=== PATIENT | female | born 1945 | race Caucasian/White ===

== ENCOUNTER 2017-03-18 07:53 | Outpatient (CLI) | payer MEDICARE, OTHER | END 2017-03-18 07:54 | disposition home or self-care (01) | DX: I10 Essential (primary) hypertension (principal) ==

== ENCOUNTER 2017-07-08 11:13 | Day surgery (SDC) | payer MEDICARE, OTHER ==
[2017-07-08] MEDS ORDERED: LACTATED RINGERS 1,000 ML IV ONE ×2 (11:20→13:05)
[2017-07-08] MEDS ORDERED: MIDAZOLAM 2 MG/2 ML VIAL IVP ONE (12:01)
[2017-07-08] MEDS ORDERED: fentaNYL 100 MCG/2 ML VIAL IVP ONE (12:01)
[2017-07-08 14:10] VITALS: BP 104/53
== END 2017-07-08 11:14 | disposition home or self-care (01) ==
LOC: SDS 11:13
PROVIDERS: ATTEND Surgery
PROC: 0DBL8ZX Excision of Transverse Colon, Via Natural or Artificial Opening Endoscopic, Diagnostic (ICD-10-PCS; 2017-07-08)
PROC: 0DBN8ZX Excision of Sigmoid Colon, Via Natural or Artificial Opening Endoscopic, Diagnostic (ICD-10-PCS; 2017-07-08)
PROC: 0DBC8ZX Excision of Ileocecal Valve, Via Natural or Artificial Opening Endoscopic, Diagnostic (ICD-10-PCS; 2017-07-08)
PROC: 0DBK8ZX Excision of Ascending Colon, Via Natural or Artificial Opening Endoscopic, Diagnostic (ICD-10-PCS; principal; 2017-07-08 12:15)
DX: D12.2 Benign neoplasm of ascending colon (principal); D12.3 Benign neoplasm of transverse colon; D12.0 Benign neoplasm of cecum; D12.5 Benign neoplasm of sigmoid colon; K64.4 Residual hemorrhoidal skin tags; K57.30 Diverticulosis of large intestine without perforation or abscess without bleeding; K64.8 Other hemorrhoids; K21.9 Gastro-esophageal reflux disease without esophagitis; E03.9 Hypothyroidism, unspecified; E78.5 Hyperlipidemia, unspecified; Z79.82 Long term (current) use of aspirin; Z88.2 Allergy status to sulfonamides
CPT/HCPCS: 45380; 45385; J7120

== ENCOUNTER 2018-05-26 07:50 | Outpatient (CLI) | payer MEDICARE, OTHER ==
[2018-05-26 12:57] LABS: BASOPHILS # (AUTO) 0.1 10^3/uL (0.0-0.1); BASOPHILS % (AUTO) 1.1 %; EOSINOPHILS # (AUTO) 0.3 10^3/uL (0.0-0.7); EOSINOPHILS % (AUTO) 4.9 %; HGB - HEMOGLOBIN 13.7 g/dL (12.0-16.0); LYMPHOCYTES # (AUTO) 1.9 10^3/uL (1.5-3.5); MEAN CORPUSCULAR HGB CONC 33.2 g/dL (32.0-36.0); MEAN CORPUSCULAR VOLUME 93.3 fL (81.0-99.0); MEAN PLATELET VOLUME 9.5 fL (7.9-10.8); MONOCYTES # (AUTO) 0.6 10^3/uL (0.0-1.0); MONOCYTES % (AUTO) 9.8 %; NEUTROPHILS # (AUTO) 2.9 10^3/uL (1.5-6.6); NEUTROPHILS % (AUTO) 51.2 %; PLT - PLATELET COUNT 276 10^3/uL (130-450); RED BLOOD COUNT 4.41 10^6/uL (4.20-5.40); RED CELL DISTRIBUTION WIDTH 14.5 % (12.0-15.0); WHITE BLOOD COUNT 5.7 x10^3/uL (4.8-10.8)
[2018-05-26 13:18] LABS: ALBUMIN 3.7 g/dL (3.2-5.5); ALBUMIN/GLOBULIN RATIO 1.2 (1.0-2.2); ALKALINE PHOSPHATASE 47 IU/L (42-121); ALT ALANINE AMINOTRANSFERASE 18 IU/L (10-60); AST ASPARTATE AMINOTRANSFERASE 20 IU/L (10-42); BILIRUBIN,TOTAL 0.7 mg/dL (0.2-1.0); BUN - BLOOD UREA NITROGEN 23 mg/dL (6-20); CALCIUM 8.7 mg/dL (8.5-10.3); CARBON DIOXIDE - CO2 28 mmol/L (21-32); CHLORIDE 105 mmol/L (101-111); CHOL/HDL RATIO 2.8 (<4.4); CHOLESTEROL 184 mg/dL; CREATININE 1.1 mg/dL (0.4-1.0); GFR - MDRD 49 (>89); GLUCOSE 78 mg/dL (70-100); HDL CHOLESTEROL 66 mg/dL; LDL CHOLESTEROL,CALCULATED 98 mg/dL; LDL/HDL RATIO 1.5 (<4.4); SODIUM 139 mmol/L (135-145); TOTAL PROTEIN 6.9 g/dL (6.7-8.2); VLDL CHOLESTEROL 20 mg/dL
== END 2018-05-26 07:51 ==
LOC: LAB.WCP 07:50
PROVIDERS: ATTEND Family Medicine
DX: I10 Essential (primary) hypertension (principal); E78.5 Hyperlipidemia, unspecified; E03.9 Hypothyroidism, unspecified
CPT/HCPCS: 36415; 80053; 80061; 83721; 84443; 85025

== ENCOUNTER 2018-06-29 08:00 | Outpatient (CLI) | payer MEDICARE, OTHER ==
[2018-06-29 19:52] LABS: H. PYLORIS ANTIGEN STL NEGATIVE (Negative)
== END 2018-06-29 08:01 | disposition home or self-care (01) ==
LOC: LAB.WCP 08:00
PROVIDERS: ATTEND Physician Assistant Medical
DX: K52.9 Noninfective gastroenteritis and colitis, unspecified (principal)
CPT/HCPCS: 83630; 87338; 87493

== ENCOUNTER 2018-07-01 09:22 | Outpatient (CLI) | payer MEDICARE, OTHER | END 2018-07-01 09:23 | disposition home or self-care (01) | LOC: LAB.WCP 09:22 | PROVIDERS: ATTEND Physician Assistant Medical | DX: K52.9 Noninfective gastroenteritis and colitis, unspecified (principal) | CPT/HCPCS: 81599; 87045; 87046; 87177; 87209; 87329 ==

== ENCOUNTER 2018-08-16 12:11 | Outpatient (CLI) | payer MEDICARE, OTHER ==
--- NOTE | 2018-08-17 11:37 | Mammography Report ---
Reason: SCREENING MAMMO Procedure Date: 08/16/2018 Accession Number: [id number] / [id number] Procedure: MGN - Screening Mammo Dig Bilat CPT Code: FULL RESULT: EXAM: Screening Mammo Dig Bilat DATE: 08/16/2018 12:29 PM CLINICAL HISTORY: 72-year-old female presents for screening mammography. TECHNIQUE: Bilateral CC and MLO views were obtained. COMPARISON: 07/16/2016, 05/31/2015, 05/11/2014, 01/16/2013. FINDINGS: The breasts demonstrate scattered fibroglandular densities bilaterally. Typically benign vascular calcifications are seen in the left and right breast. No suspicious masses, clustered microcalcifications, or regions of architectural distortion are identified. IMPRESSION: Benign findings RECOMMENDATION: Routine annual screening unless otherwise clinically indicated. BIRADS CATEGORY 2: Benign findings STANDARD QUALIFYING STATEMENTS: 1. This examination was not reviewed with the aid of Computer-Aided Detection (CAD). 2. A negative or benign imaging report should not delay biopsy if clinically suspicious findings are present. Consider surgical consultation if warrented. More than 5% of cancers are not identified by imaging. 3. Dense breasts may obscure an underlying neoplasm. 4. This examination was reviewed without the aid of 3D breast imaging (tomosynthesis).
== END 2018-08-16 12:12 | disposition home or self-care (01) ==
LOC: DI.N 12:11
PROVIDERS: ATTEND Physician Assistant Medical
DX: Z12.31 Encounter for screening mammogram for malignant neoplasm of breast (principal)
CPT/HCPCS: 77067

== ENCOUNTER 2019-05-12 07:18 | Outpatient (CLI) | payer MEDICARE, OTHER ==
[2019-05-12 13:19] LABS: BASOPHILS % (AUTO) 0.7 %; EOSINOPHILS # (AUTO) 0.4 10^3/uL (0.0-0.7); EOSINOPHILS % (AUTO) 7.5 %; HGB - HEMOGLOBIN 13.6 g/dL (12.0-16.0); LYMPHOCYTES # (AUTO) 1.8 10^3/uL (1.5-3.5); LYMPHOCYTES % (AUTO) 31.5 %; MEAN CORPUSCULAR HEMOGLOBIN 29.6 pg (27.0-31.0); MEAN CORPUSCULAR HGB CONC 32.5 g/dL (32.0-36.0); MEAN CORPUSCULAR VOLUME 91.1 fL (81.0-99.0); MEAN PLATELET VOLUME 10.9 fL (7.9-10.8); MONOCYTES # (AUTO) 0.6 10^3/uL (0.0-1.0); MONOCYTES % (AUTO) 10.8 %; NEUTROPHILS # (AUTO) 2.9 10^3/uL (1.5-6.6); NEUTROPHILS % (AUTO) 49.3 %; PLT - PLATELET COUNT 285 10^3/uL (130-450); RED CELL DISTRIBUTION WIDTH 13.9 % (12.0-15.0); WHITE BLOOD COUNT 5.9 x10^3/uL (4.8-10.8)
[2019-05-12 14:18] LABS: ALBUMIN 4.3 g/dL (3.2-5.5); ALBUMIN/GLOBULIN RATIO 1.5 (1.0-2.2); ALKALINE PHOSPHATASE 53 IU/L (42-121); ALT ALANINE AMINOTRANSFERASE 21 IU/L (10-60); AST ASPARTATE AMINOTRANSFERASE 23 IU/L (10-42); BUN - BLOOD UREA NITROGEN 17 mg/dL (6-20); CARBON DIOXIDE - CO2 25 mmol/L (21-32); CHLORIDE 106 mmol/L (101-111); CHOL/HDL RATIO 2.5 (<4.4); CHOLESTEROL 167 mg/dL; GFR - MDRD 54 (>89); GLUCOSE 83 mg/dL (70-100); HDL CHOLESTEROL 67 mg/dL; LDL CHOLESTEROL,CALCULATED 78 mg/dL; LDL/HDL RATIO 1.2 (<4.4); SODIUM 138 mmol/L (135-145); TOTAL PROTEIN 7.1 g/dL (6.7-8.2); VLDL CHOLESTEROL 22 mg/dL
== END 2019-05-12 07:19 | disposition home or self-care (01) ==
LOC: LAB.WCP 07:18
PROVIDERS: ATTEND Physician Assistant Medical
DX: E78.5 Hyperlipidemia, unspecified (principal); K21.9 Gastro-esophageal reflux disease without esophagitis
CPT/HCPCS: 36415; 80053; 80061; 83721; 85025

== ENCOUNTER 2019-06-20 11:53 | Outpatient (CLI) | payer MEDICARE, OTHER ==
--- NOTE | 2019-06-20 17:49 | XRAY Report ---
Reason: WHEEZING Procedure Date: 06/20/2019 Accession Number: [id number] / [id number] Procedure: XR - Chest 2 View X-Ray CPT Code: 73303 FULL RESULT: EXAM: CHEST RADIOGRAPHY EXAM DATE: 06/20/2019 12:07 PM. CLINICAL HISTORY: WHEEZING. COMPARISON: 10/10/2015 9:04 AM. TECHNIQUE: 2 views. FINDINGS: Lungs/Pleura: Scarring in left lung base similar to previous study. No acute infiltrate, consolidation, effusion, or pneumothorax. Mediastinum: Heart and mediastinal contours are unremarkable. upper lobe vessels not distended. Other: None. IMPRESSION: Chronic findings. No acute disease. RADIA
== END 2019-06-20 11:54 | disposition home or self-care (01) ==
LOC: DI 11:53
PROVIDERS: ATTEND Allergy & Immunology
DX: R06.2 Wheezing (principal)
CPT/HCPCS: 71046

== ENCOUNTER 2019-06-26 | Outpatient (CLI) | payer MEDICARE, OTHER | END 2019-06-26 23:59 | disposition home or self-care (01) | DX: E03.9 Hypothyroidism, unspecified (principal) ==

== ENCOUNTER 2019-06-26 09:00 | Outpatient (CLI) | payer MEDICARE, OTHER ==
--- NOTE | 2019-06-27 09:10 | XRAY Report ---
Reason: RIGHT LEG PAIN Procedure Date: 06/26/2019 Accession Number: [id number] / [id number] Procedure: WCP - Tib/Fib RT CPT Code: FULL RESULT: EXAM: RIGHT TIBIA/FIBULA RADIOGRAPHY EXAM DATE: 06/26/2019 02:13 PM. CLINICAL HISTORY: Right leg pain. Hit [place] below right knee 3 weeks ago with continued large bump and swelling. COMPARISON: XR KNEE 3 VIEW 01/01/2012 10:39 AM. TECHNIQUE: 2 views. FINDINGS: Bones: Normal. No fracture or bone lesion. Joints: Degenerative disease of the knee redemonstrated. No joint subluxation. Soft Tissues: Proximal pretibial swelling demonstrated. IMPRESSION: 1. No acute osseous abnormality. 2. Knee osteoarthritis redemonstrated. 3. Proximal, pretibial swelling demonstrated. RADIA
== END 2019-06-26 23:59 | disposition home or self-care (01) ==
LOC: DI.WCP 09:00 → EDSTATUS 13:01 → DI.WCP 23:59
PROVIDERS: ATTEND Physician Assistant Medical
DX: M17.11 Unilateral primary osteoarthritis, right knee (principal); R22.41 Localized swelling, mass and lump, right lower limb

== ENCOUNTER 2019-10-12 10:04 | Outpatient (CLI) | payer MEDICARE, OTHER ==
--- NOTE | 2019-10-13 10:09 | Mammography Report ---
Reason: SCREENING MAMMO Procedure Date: 10/12/2019 Accession Number: [id number] / [id number] Procedure: STEPHEN - Screening Mammo Dig Bilat CPT Code: Final Report FULL RESULT: EXAM: Screening Mammo Dig Bilat DATE: 10/12/2019 10:28 AM CLINICAL HISTORY: Screening encounter. TECHNIQUE: (B) - Bilateral CC and MLO views were obtained. COMPARISON: 08/16/2018 through 04/28/2010. PARENCHYMAL PATTERN: (A) - The breast(s) demonstrate(s) scattered fibroglandular densities. FINDINGS: There are typically benign vascular calcifications. In the right retroareolar breast 2 cm from the nipple seen on MLO projection is an increasing 0.7 cm asymmetry without definite CC correlate. This requires additional spot views ideally with 3-D mammography and possibly ultrasound for clarification. There are no suspicious masses, calcifications, or areas of distortion in the left breast. IMPRESSION: Incomplete examination. BI-RADS category 0. RECOMMENDATION: (AD[facility]) - Additional views using both Mammography and Ultrasound recommended. Right breast. BI-RADS CATEGORY: (0) - Incomplete Examination - need additional evaluation. STANDARD QUALIFYING STATEMENTS: 1. This examination was not reviewed with the aid of Computer-Aided Detection (CAD). 2. A negative or benign imaging report should not preclude biopsy if clinically suspicious findings are present. 3. Dense breasts may obscure an underlying neoplasm. 4. This examination was reviewed without the aid of 3D breast imaging (tomosynthesis).
== END 2019-10-12 10:05 | disposition home or self-care (01) ==
LOC: DI 10:04
DX: Z12.31 Encounter for screening mammogram for malignant neoplasm of breast (principal); R92.8 Other abnormal and inconclusive findings on diagnostic imaging of breast
CPT/HCPCS: 77067

== ENCOUNTER 2019-10-18 13:58 | Outpatient (CLI) | payer MEDICARE, OTHER ==
--- NOTE | 2019-10-18 16:42 | Mammography Report ---
Reason: ABN MAMMO - RT SPEC VIEW Procedure Date: 10/18/2019 Accession Number: [id number] / [id number] Procedure: STEPHEN - Diag Special Views Dig RT CPT Code: Final Report FULL RESULT: EXAM: Diag Special Views Dig RT with cristal, Breast Unilateral Limited DATE: 10/18/2019 2:57 PM CLINICAL HISTORY: The patient is an asymptomatic 74-year-old female recalled from screening mammogram (10/12/2019) for developing right breast asymmetry. RIGHT MAMMOGRAM: TECHNIQUE: (Diagnostic views right breast with cristal COMPARISON: 08/16/2018, 07/16/2016, 05/31/2015, 05/11/2014 and 01/16/2013 PARENCHYMAL PATTERN: (A) - The breasts demonstrate scattered fibroglandular densities bilaterally. FINDINGS: The described focal asymmetry near fully dissipates on targeted diagnostic imaging. There are no suspicious masses, calcifications, or areas of distortion. There is no mammographic evidence of malignancy. RIGHT BREAST ULTRASOUND: TECHNIQUE: A high frequency transducer was utilized to evaluate the area of mammographic concern in the anterior aspect of the breast. FINDINGS: [place] of normal fibrofatty tissue present. Few normal subareolar ducts noted. No cyst, solid mass, hyperemia or distortion. There is no sonographic evidence of malignancy. IMPRESSION: Benign findings. BI-RADS category 2. RECOMMENDATION: (ANNUAL) - Recommend routine annual screening mammography. BI-RADS CATEGORY: (2) - Benign Findings. STANDARD QUALIFYING STATEMENTS: 1. This examination was not reviewed with the aid of Computer-Aided Detection (CAD). 2. A negative or benign imaging report should not preclude biopsy if clinically suspicious findings are present. 3. Dense breasts may obscure an underlying neoplasm. 4. This examination was reviewed with the aid of 3D breast imaging (tomosynthesis).
== END 2019-10-18 13:59 | disposition home or self-care (01) ==
LOC: DI 13:58
PROVIDERS: ATTEND Physician Assistant Medical
DX: R92.8 Other abnormal and inconclusive findings on diagnostic imaging of breast (principal)
CPT/HCPCS: 76642

== ENCOUNTER 2020-01-16 12:44 | Outpatient (CLI) | payer MEDICARE, OTHER ==
--- NOTE | 2020-01-23 11:22 | DEXA Report ---
Reason: SCREEN FOR OSTEOPOROSIS Procedure Date: 01/16/2020 Accession Number: [id number] / [id number] Procedure: DEX - Dexa Spine and/or Hip CPT Code: Final Report FULL RESULT: EXAM: Dexa Spine and/or Hip DATE: 01/16/2020 1:52 PM CLINICAL HISTORY: SCREEN FOR OSTEOPOROSIS TECHNIQUE: Dual energy x-ray absorptiometry (DXA) was performed on a PDV System. Regions measured are the AP Spine, femoral neck, and if needed forearm. COMPARISON: 09/10/2016. In accordance with the International Society for Clinical Densitometry (ISCD) guidelines, data from previous exams may be reanalyzed using current recommendations and techniques. This is done to allow a more accurate basis for comparison with the current study. FINDINGS: The data for the lumbar spine is as follows: BMD (g/cm/cm) T-SCORE Z-SCORE REGION L1 0.881 -2.1 -0.9 L2 0.932 -2.2 -1.1 L3 0.960 -2.0 -0.9 L4 1.112 -0.7 0.4 TOTAL 0.989 -1.6 -0.5 NOTE: All evaluable vertebrae are used for classification The data for the hip is as follows: BMD (g/cm/cm) T-SCORE Z-SCORE REGION Neck 0.670 -2.6 -1.1 TOTAL 0.711 -2.4 -1.0 NOTE: The femoral neck or total proximal femur, whichever is lowest, is used for classification. DXA RESULTS SUMMARY: Spine SCAN DATE [age]GE BMD CHANGE VS CHANGE VS PREVIOUS PREVIOUS % 01[age]16/2020 [age] 0.970 -0.027 -2.7 09/10/2016 [age] 0.997 * Denotes significant change at the 95% confidence level. Denotes dissimilar scan types or analysis methods. DXA RESULTS SUMMARY: Hip SCAN DATE AGE BMD CHANGE VS CHANGE VS PREVIOUS PREVIOUS % 01[age]16/2020 74.3 0.711 -0.063* -8.1* 09/10/2016 [age] 0.744 * Denotes significant change at the 95% confidence level. Denotes dissimilar scan types or analysis methods. IMPRESSION: THE WHO CLASSIFICATION BASED ON THE INTERNATIONAL REFERENCE STANDARD IS OSTEOPOROSIS. THE FRACTURE RISK IS HIGH. Interval decrease in bone density in the hip is statistically significant. RECOMMENDATION: Patients with diagnosis of osteoporosis or osteopenia should have regular bone mineral density assessment. For those eligible for Medicare, routine testing is allowed once every 2 years. Testing frequency can be increased for patients who have rapidly progressing disease or for those who are receiving medical therapy to restore bone mass. COMMENT: World Health Organization (WHO) definitions for osteoporosis and osteopenia: NORMAL BMD: T-score at -1.0 or higher, fracture risk is low OSTEOPENIA BMD: T-score between -1.0 and -2.5, fracture risk is increased. OSTEOPOROSIS BMD: T-score at -2.5 or lower, fracture risk is high. National Osteoporosis Foundation recommends: 1. Obtain adequate dietary calcium (at least 1200 mg per day) and vitamin D (400-800 international units per day). 2. Participate, as appropriate, in regular weightbearing and muscle-strengthening exercise. 3. Avoid tobacco use and reduce alcohol and caffeine intake. 4. For more detailed information see the website at www.NOF.org.
== END 2020-01-16 12:45 | disposition home or self-care (01) ==
LOC: DI 12:44
PROVIDERS: ATTEND Physician Assistant Medical
DX: Z13.820 Encounter for screening for osteoporosis (principal); M81.0 Age-related osteoporosis without current pathological fracture; Z78.0 Asymptomatic menopausal state
CPT/HCPCS: 77080

== ENCOUNTER 2020-06-07 11:52 | Outpatient (CLI) | payer MEDICARE, OTHER | END 2020-06-07 11:53 | disposition home or self-care (01) | LOC: COV 11:52 | PROVIDERS: ATTEND Family Medicine | DX: R06.02 Shortness of breath (principal); R53.83 Other fatigue; R68.83 Chills (without fever); R09.81 Nasal congestion; Z20.828 Contact with and (suspected) exposure to other viral communicable diseases ==

== ENCOUNTER 2020-06-17 17:42 | Outpatient (CLI) | payer MEDICARE, OTHER | END 2020-06-17 17:43 | disposition home or self-care (01) | LOC: COV 17:42 | PROVIDERS: ATTEND Family Medicine | DX: R06.02 Shortness of breath (principal); R53.83 Other fatigue; R68.83 Chills (without fever); R09.81 Nasal congestion; Z20.828 Contact with and (suspected) exposure to other viral communicable diseases ==

== ENCOUNTER 2020-07-04 08:00 | Outpatient (CLI) | payer MEDICARE, OTHER | END 2020-07-04 23:59 | disposition home or self-care (01) | LOC: LAB.WCP 08:00 | PROVIDERS: ATTEND Physician Assistant Medical | DX: R31.9 Hematuria, unspecified (principal) | CPT/HCPCS: 81002 ==

== ENCOUNTER 2020-07-05 14:43 | Outpatient (CLI) | payer MEDICARE, OTHER ==
[2020-07-05 18:40] LABS: BILIRUBIN,URINE NEGATIVE (NEGATIVE); GLUCOSE, URINE (UA) NEGATIVE (NEGATIVE); KETONES,URINE (UA) NEGATIVE (NEGATIVE); LEUKOCYTE ESTERASE, URINE MODERATE (NEGATIVE); NITRITE,URINE NEGATIVE (NEGATIVE); OCCULT BLOOD,URINE TRACE-LYSE (NEGATIVE); PH,URINE 5.5 PH (5.0-7.5); PROTEIN,URINE NEGATIVE (NEGATIVE); UROBILINOGEN,URINE 0.2 (NORMAL) E.U./dL (NORMAL)
[2020-07-05 18:46] LABS: CLARITY,URINE HAZY (CLEAR)
[2020-07-05 19:11] LABS: BACTERIA,URINE Rare /HPF (None Seen); SQUAMOUS EPITHELIAL CELL,UR MANY Squamous (<= Few)
== END 2020-07-05 14:44 | disposition home or self-care (01) ==
LOC: LAB.R 14:43
PROVIDERS: ATTEND Family Medicine
DX: R31.9 Hematuria, unspecified (principal)
CPT/HCPCS: 81001; 87086

== ENCOUNTER 2020-10-22 13:07 | Outpatient (CLI) | payer MEDICARE, OTHER ==
--- NOTE | 2020-10-23 05:44 | Mammography Report ---
BILATERAL DIGITAL SCREENING MAMMOGRAM 3D/2D: 10/22/2020 CLINICAL: Routine screening. Comparison is made to exams dated: 10/18/2019 ultrasound, 10/18/2019 mammogram, 10/12/2019 mammogram , 08/16/2018 mammogram, 07/16/2016 mammogram, and 05/31/2015 mammogram - [facility]. There are scattered fibroglandular elements in both breasts. No significant masses, calcifications, or other findings are seen in either breast. There has been no significant interval change. IMPRESSION: NEGATIVE There is no mammographic evidence of malignancy. A 1 year screening mammogram is recommended. This exam was interpreted at Station ID: [id number]. NOTE: For mammograms, a report in lay terms will be sent to the patient. Approximately 15% of breast malignancies will not be visualized mammographically. In the management of a palpable breast mass, a negative mammogram must not discourage biopsy of a clinically suspicious lesion. Electronically Signed By: Jasson ivory/mariana:10/22/2020 17:41:34 ACR BI-RADS Category 1: Negative 3341F PARENCHYMAL PATTERN: (A) - The breast(s) demonstrate(s) scattered fibroglandular densities. BI-RADS CATEGORY: (1) - 1 RECOMMENDATION: (ANNUAL) - Recommend routine annual screening mammography. [id number] 1 year screening LATERALITY: (B)
== END 2020-10-22 13:08 | disposition home or self-care (01) ==
LOC: DI.N 13:07
DX: Z12.31 Encounter for screening mammogram for malignant neoplasm of breast (principal)

== ENCOUNTER 2020-10-25 07:27 | Outpatient (CLI) | payer MEDICARE, OTHER ==
[2020-10-25 12:43] LABS: BASOPHILS # (AUTO) 0.1 10^3/uL (0.0-0.1); EOSINOPHILS # (AUTO) 0.2 10^3/uL (0.0-0.7); EOSINOPHILS % (AUTO) 3.7 %; HGB - HEMOGLOBIN 13.6 g/dL (12.0-16.0); LYMPHOCYTES % (AUTO) 33.8 %; MEAN CORPUSCULAR HEMOGLOBIN 30.3 pg (27.0-31.0); MEAN CORPUSCULAR HGB CONC 32.8 g/dL (32.0-36.0); MEAN CORPUSCULAR VOLUME 92.4 fL (81.0-99.0); MEAN PLATELET VOLUME 11.3 fL (7.9-10.8); MONOCYTES # (AUTO) 0.6 10^3/uL (0.0-1.0); MONOCYTES % (AUTO) 10.7 %; NEUTROPHILS % (AUTO) 50.6 %; PLT - PLATELET COUNT 291 10^3/uL (130-450); RED BLOOD COUNT 4.49 10^6/uL (4.20-5.40); RED CELL DISTRIBUTION WIDTH 13.5 % (12.0-15.0)
[2020-10-25 13:04] LABS: ALBUMIN/GLOBULIN RATIO 1.3 (1.0-2.2); ALKALINE PHOSPHATASE 53 IU/L (42-121); ALT ALANINE AMINOTRANSFERASE 20 IU/L (10-60); AST ASPARTATE AMINOTRANSFERASE 21 IU/L (10-42); BILIRUBIN,TOTAL 0.9 mg/dL (0.2-1.0); BUN - BLOOD UREA NITROGEN 20 mg/dL (6-20); CALCIUM 9.2 mg/dL (8.5-10.3); CARBON DIOXIDE - CO2 27 mmol/L (21-32); CHLORIDE 102 mmol/L (101-111); CHOL/HDL RATIO 2.4 (<4.4); CHOLESTEROL 178 mg/dL; GLUCOSE 88 mg/dL (70-100); HDL CHOLESTEROL 73 mg/dL; LDL CHOLESTEROL,CALCULATED 91 mg/dL; LDL/HDL RATIO 1.2 (<4.4); SODIUM 141 mmol/L (135-145); VLDL CHOLESTEROL 14 mg/dL
== END 2020-10-25 07:28 | disposition home or self-care (01) ==
LOC: LAB.WCP 07:27
PROVIDERS: ATTEND Physician Assistant Medical
DX: E78.5 Hyperlipidemia, unspecified (principal); E03.9 Hypothyroidism, unspecified; I10 Essential (primary) hypertension
CPT/HCPCS: 36415; 80053; 80061; 83721; 84443; 85025

== ENCOUNTER 2020-11-25 08:00 | Outpatient (CLI) | payer MEDICARE, OTHER ==
[2020-11-25 13:25] LABS: CHOL/HDL RATIO 2.5 (<4.4); CHOLESTEROL 176 mg/dL; HDL CHOLESTEROL 71 mg/dL; LDL CHOLESTEROL,CALCULATED 88 mg/dL; LDL/HDL RATIO 1.2 (<4.4); VLDL CHOLESTEROL 17 mg/dL
== END 2020-11-25 23:59 | disposition home or self-care (01) ==
LOC: LAB.WCP 08:00
PROVIDERS: ATTEND Registered Nurse
DX: E78.49 Other hyperlipidemia (principal)
CPT/HCPCS: 36415; 80061; 83721

== ENCOUNTER 2021-02-06 09:24 | Day surgery (SDC) | payer MEDICARE, OTHER ==
[2021-02-06] MEDS ORDERED: LACTATED RINGERS 1,000 ML IV ONE ×2 (09:27→11:23)
--- NOTE | 2021-02-06 10:13 | ANESTHESIA ---
Pre-Anesthesia VS, & Labs - Diagnosis history of colon polyps - Procedure colonoscopy Vital Signs: Temp Pulse Resp BP Pulse Ox 36.6 C 82 16 147/89 H 98 02/06/21 09:30 02/06/21 09:30 02/06/21 09:30 02/06/21 09:30 02/06/21 09:30 Height: 5 ft 4 in Weight (kg): 79 kg Body Mass Index: 29.9 BMI Classification: Overweight - NPO >8 hours - Is Patient ?: No Home Medications and Allergies Home Medications: Ambulatory Orders Apixaban [Eliquis] 5 mg PO DAILY 02/05/21 Diltiazem HCl [Cardizem Cd] 360 mg PO DAILY 02/05/21 Simvastatin [Zocor] 20 mg PO DAILY 02/05/21 Hydrochlorothiazide 12.5 mg PO DAILY 10/10/15 Levothyroxine [Synthroid] 100 mcg PO DAILY 10/10/15 Apixaban [Eliquis] 5 mg PO DAILY 02/05/21 Diltiazem HCl [Cardizem Cd] 360 mg PO DAILY 02/05/21 Simvastatin [Zocor] 20 mg PO DAILY 02/05/21 Allergies/Adverse Reactions: Allergies Allergy/AdvReac Type Severity Reaction Status Date / Time Sulfa (Sulfonamide Allergy Unknown Verified 07/08/17 11:34 Antibiotics) Anes History & Medical History - Anesthetic History Anesthesia Complications: reports: No previous complications - Medical History Cardiovascular: reports: Hypertension, Atrial fibrillation Pulmonary: reports: Sleep apnea, CPAP use Gastrointestinal: reports: GERD Urinary: reports: Chronic bladder infection Neuro: reports: None Musculoskeletal: reports: Osteoarthritis Endocrine/Autoimmune: reports: None Blood Disorders: reports: None Skin: reports: Other Smoking Status: Never smoker Psychosocial: reports: No issues indicated - Surgical History General: reports: Cholecystectomy, Appendectomy, Colonoscopy Eyes Ears Nose Throat (EENT): reports: Cataracts, Other Exam General: Alert, Oriented x3, Cooperative, No acute distress Dental: WNL Mouth Openin Fingerbreadth Neck Mobility: Normal Mallampati classification: II Mental/Cognitive Status: Alert/Oriented X3, Normal for patient Plan Anesthesia Type: MAC Consent for Procedure(s) Verified and Reviewed: Yes Code Status: Attempt Resuscitation ASA classification: 2-Mild systemic disease Is this case an emergency?: No
[2021-02-06] MEDS ORDERED: PROPOFOL 500 MG/50 ML 500 MG/50 ML VIAL ONE (10:48)
[2021-02-06] MEDS ORDERED: fentaNYL 100 MCG/2 ML VIAL ONE (10:51)
[2021-02-06] MEDS ORDERED: GLYCOPYRROLATE 1 MG/5 ML VIAL ONE (11:09)
[2021-02-06] MEDS ORDERED: PHENYLEPHRINE 10 MG/ML VIAL ONE (11:20)
[2021-02-06 11:57] VITALS: BP 109/55
--- NOTE | 2021-02-06 17:15 | ANESTHESIA POST OP EVALUATION ---
Anesthesia Post Eval - Post Anesthesia Eval Vitals: Last Vital Signs Temp 36.6 C 02/06/21 11:45 Pulse 113 H 02/06/21 11:45 Resp 17 02/06/21 11:45 BP 109/55 L 02/06/21 11:45 Pulse Ox 97 02/06/21 11:45 CV Function Including HR & BP: positive: Stable Pain Control: positive: Satisfactory Nausea & Vomiting: positive: Negative Mental Status: positive: Baseline Respiratory Status: Airway Patent Hydration Status: Satisfactory Anesthesia Complications: positive: None
== END 2021-02-06 09:25 | disposition home or self-care (01) ==
LOC: SDS 09:24
PROVIDERS: ATTEND Surgery
PROC: 0DBE8ZX Excision of Large Intestine, Via Natural or Artificial Opening Endoscopic, Diagnostic (ICD-10-PCS; 2021-02-06)
PROC: 0DBL8ZZ Excision of Transverse Colon, Via Natural or Artificial Opening Endoscopic (ICD-10-PCS; 2021-02-06)
PROC: 0DBH8ZZ Excision of Cecum, Via Natural or Artificial Opening Endoscopic (ICD-10-PCS; principal; 2021-02-06 10:30)
DX: R19.7 Diarrhea, unspecified (principal); D12.0 Benign neoplasm of cecum; D12.3 Benign neoplasm of transverse colon; K57.30 Diverticulosis of large intestine without perforation or abscess without bleeding; I48.91 Unspecified atrial fibrillation; E66.3 Overweight; Z68.29 Body mass index [BMI] 29.0-29.9, adult; I10 Essential (primary) hypertension; G47.30 Sleep apnea, unspecified; K21.9 Gastro-esophageal reflux disease without esophagitis; E03.9 Hypothyroidism, unspecified; F41.9 Anxiety disorder, unspecified
CPT/HCPCS: 45380; 83630; 87015; 87177; 87209; 87272; 87329; 87493; J7120

== ENCOUNTER 2021-03-07 13:36 | Emergency (ER) | payer MEDICARE, OTHER ==
--- NOTE | 2021-03-07 13:48 | ED Physician Documentation ---
PD HPI LOWER EXT INJURY - Stated complaint Stated Complaint: LT LEG PX - Chief complaint Chief Complaint: Ext Problem - History obtained from History obtained from: Patient - History of Present Illness PD HPI LOW EXT INJURY LOCATION: Left, Lower leg, Ankle, Foot Type of injury: No: Fall, Twist, Blunt / blow Timing - onset: How many weeks ago (1) Timing - duration: Weeks (1) Timing - details: Gradual onset (has had a week of pain in ankle and foot. Some redness to top of foot. Noted some swelling in both legs, but more to left. No pain in calf itself.), Still present Worsened by: Moving (walking), Palpating (top of back tender pulp drier) Associated symptoms: Swelling, Discolored (redness dorsum of foot). No: Weakness, Numbness Similar symptoms before: Has not had sx before Recently seen: Clinic (went to Walk In and referred to ER for U/S for concern of DVT.) Review of Systems Constitutional: denies: Fever, Chills Nose: denies: Rhinorrhea / runny nose, Congestion Throat: denies: Sore throat Respiratory: denies: Cough Skin: denies: Abrasion (s), Laceration (s) Musculoskeletal: reports: Extremity pain, Extremity swelling Neurologic: denies: Focal weakness, Numbness PD PAST MEDICAL HISTORY - Past Medical History Cardiovascular: Hypertension, Atrial fibrillation Respiratory: Sleep apnea, CPAP use Neuro: None Endocrine/Autoimmune: None GI: GERD : Chronic bladder infection HEENT: Chronic vision loss, Chronic sinusitis Psych: Claustrophobia Musculoskeletal: Osteoarthritis Derm: Other - Past Surgical History Past Surgical History: No General: Cholecystectomy, Appendectomy, Colonoscopy HEENT: Cataracts, Other - Present Medications Home Medications: Ambulatory Orders Medication Instructions Recorded Confirmed Hydrochlorothiazide 12.5 mg PO DAILY 10/10/15 03/07/21 Levothyroxine [Synthroid] 100 mcg PO DAILY 10/10/15 03/07/21 Apixaban [Eliquis] 5 mg PO BID 02/05/21 03/07/21 Diltiazem HCl [Cardizem Cd] 360 mg PO DAILY 02/05/21 03/07/21 Simvastatin [Zocor] 20 mg PO DAILY 02/05/21 03/07/21 dexAMETHasone [Decadron] 4 mg PO DAILY #5 tablet 03/07/21 - Allergies Allergies/Adverse Reactions: Allergies Allergy/AdvReac Type Severity Reaction Status Date / Time Sulfa (Sulfonamide Allergy Unknown Verified 03/07/21 13:40 Antibiotics) - Social History Does the pt smoke?: No Smoking Status: Never smoker Does the pt drink ETOH?: Yes Does the pt have substance abuse?: No - Immunizations Immunizations are current?: Yes PD ED PE NORMAL - Vitals Vital signs reviewed: Yes - General General: Alert and oriented X 3, No acute distress, Well developed/nourished - Respiratory Respiratory: No respiratory distress, Clear bilaterally - Derm Derm: Normal color, Warm and dry, No rash - Extremities Extremities: Other (mild swelling/edema in both legs, more to the left. No calf tenderness. There is redness with tenderness but no skin sores on dorsum of the foot. Mild tender base great toe as well but not red there. Some dry skin on bottom of foot but no noted infection source area. ) Results - Vitals Vitals: Oxygen O2 Source Room air - Rads (name of study) duplex left lower ext Radiology: Prelim report reviewed (no DVT), See rad report PD MEDICAL DECISION MAKING - ED course Complexity details: reviewed results, considered differential (could consider DVT re: foot swelling/ankle. Dorsum foot redness/tender seems c/w gout.), d/w patient Departure - Departure Disposition: 01 Home, Self Care Clinical Impression: Left foot pain, Swelling of lower leg Condition: Stable Record reviewed to determine appropriate education?: Yes Follow-Up: Matilde Rubin PA-C [Primary Care Provider] - Prescriptions: dexAMETHasone [Decadron] 4 mg PO DAILY #5 tablet Comments: No signs of blood clots on ultrasound. Continue usual medications. The top of the foot redness and some swelling could be some arthritic changes although it does have an appearance that could be consistent with gout. We can treat this with some steroid anti-inflammatories so as not to interfere with your anticoagulant. Add Tylenol if needed for pains. It does not look infectious at this point. Return if worsening redness swelling or pain. Discharge Date/Time: 03/07/21 17:27
--- OUTSIDE RECORDS SUMMARY | 2021-03-07 14:33 | EXTERNAL MEDICAL SUMMARY RPT | Continuity of Care Document ---
:1945 Demographics Phone Unavailable Preferred Language Unknown Marital Status Unknown Scientologist Affiliation Unknown Race Unknown Ethnic Group Unknown Author Organization [facility] Address [address] [place] [address] Phone Social History date description facility [phone]
--- NOTE | 2021-03-07 16:06 | Ultrasound Report ---
PROCEDURE: Duplex Ext Veins Left INDICATIONS: leg swelling and tender TECHNIQUE: Real-time imaging, as well as color and pulse Doppler interrogation, were performed of the lower extr emity deep veins from the inguinal ligament to the popliteal fossa. COMPARISON: None. FINDINGS: The deep veins are normally compressible, and free of intraluminal thrombus. Color and pu lse Doppler demonstrate normal phasic intraluminal flow. There is normal augmentation response to di stal compression maneuver. IMPRESSION: No evidence of deep vein thrombosis involving the left lower extremity. Reviewed by: Kenna Casiano MD, PhD on 03/07/2021 4:04 PM PDT Approved by: Kenna Casiano MD, PhD on 03/07/2021 4:04 PM PDT Station ID: [id number]
[2021-03-07 17:06] VITALS: BP 134/75
== END 2021-03-07 17:27 | disposition home or self-care (01) ==
LOC: ED 13:36
DX: M25.572 Pain in left ankle and joints of left foot (principal); R60.0 Localized edema; L53.9 Erythematous condition, unspecified; I10 Essential (primary) hypertension; I48.91 Unspecified atrial fibrillation; Z79.01 Long term (current) use of anticoagulants
CPT/HCPCS: 99283; 99284

== ENCOUNTER 2021-05-21 08:00 | Outpatient (CLI) | payer MEDICARE, OTHER ==
[2021-05-21 12:40] LABS: ALBUMIN 4.1 g/dL (3.2-5.5); ALBUMIN/GLOBULIN RATIO 1.4 (1.0-2.2); ALKALINE PHOSPHATASE 54 IU/L (42-121); ALT ALANINE AMINOTRANSFERASE 15 IU/L (10-60); AST ASPARTATE AMINOTRANSFERASE 18 IU/L (10-42); BUN - BLOOD UREA NITROGEN 21 mg/dL (6-20); CALCIUM 8.7 mg/dL (8.5-10.3); CARBON DIOXIDE - CO2 27 mmol/L (21-32); CHLORIDE 101 mmol/L (101-111); CHOL/HDL RATIO 2.2 (<4.4); CHOLESTEROL 167 mg/dL; CREATININE 1.1 mg/dL (0.4-1.0); GFR - MDRD 48 (>89); GLUCOSE 88 mg/dL (70-100); HDL CHOLESTEROL 75 mg/dL; LDL CHOLESTEROL,CALCULATED 80 mg/dL; LDL/HDL RATIO 1.1 (<4.4); POTASSIUM 3.6 mmol/L (3.5-5.0); SODIUM 137 mmol/L (135-145); TOTAL PROTEIN 7.1 g/dL (6.7-8.2); TRIGLYCERIDES 59 mg/dL; VLDL CHOLESTEROL 12 mg/dL
== END 2021-05-21 23:59 | disposition home or self-care (01) ==
LOC: LAB.WCP 08:00
PROVIDERS: ATTEND Physician Assistant Medical
DX: E78.5 Hyperlipidemia, unspecified (principal)
CPT/HCPCS: 36415; 80053; 80061; 83721

== ENCOUNTER 2021-08-26 07:24 | Outpatient (CLI) | payer MEDICARE, OTHER ==
[2021-08-26 11:57] LABS: CALCIUM 8.9 mg/dL (8.5-10.3); CREATININE 1.2 mg/dL (0.4-1.0)
== END 2021-08-26 23:59 | disposition home or self-care (01) ==
LOC: LAB.WCP 07:24
PROVIDERS: ATTEND Physician Assistant Medical
DX: N18.9 Chronic kidney disease, unspecified (principal)
CPT/HCPCS: 36415; 80048

== ENCOUNTER 2021-12-18 11:10 | Outpatient (CLI) | payer MEDICARE, OTHER ==
--- NOTE | 2021-12-19 12:30 | Mammography Report ---
BILATERAL DIGITAL SCREENING MAMMOGRAM 3D/2D: 12/18/2021 CLINICAL: Routine screening. Comparison is made to exams dated: 10/22/2020 mammogram, 10/18/2019 ultrasound, 10/18/2019 mammogram, 10/12/2019 mammogram, 08/16/2018 mammogram, and 07/16/2016 mammogram - [facility]. There are scattered fibroglandular elements in both breasts. No significant masses, calcifications, or other findings are seen in either breast. There has been no significant interval change. IMPRESSION: NEGATIVE There is no mammographic evidence of malignancy. A 1 year screening mammogram is recommended. This exam was interpreted at Station ID: [id number]. NOTE: For mammograms, a report in lay terms will be sent to the patient. Approximately 15% of breast malignancies will not be visualized mammographically. In the management of a palpable breast mass, a negative mammogram must not discourage biopsy of a clinically suspicious lesion. Electronically Signed By: John Fregoso acr/penrad:12/18/2021 12:06:09 ACR BI-RADS Category 1: Negative 3341F PARENCHYMAL PATTERN: (A) - The breast(s) demonstrate(s) scattered fibroglandular densities. BI-RADS CATEGORY: (1) - 1 RECOMMENDATION: (ANNUAL) - Recommend routine annual screening mammography. [id number] 1 year screening LATERALITY: (B)
== END 2021-12-18 11:11 | disposition home or self-care (01) ==
LOC: DI.N 11:10
DX: Z12.31 Encounter for screening mammogram for malignant neoplasm of breast (principal)

== ENCOUNTER 2022-01-01 07:04 | Outpatient (CLI) | payer MEDICARE, OTHER ==
[2022-01-01 12:50] LABS: ALBUMIN 4.2 g/dL (3.2-5.5); ALBUMIN/GLOBULIN RATIO 1.4 (1.0-2.2); ALKALINE PHOSPHATASE 54 IU/L (42-121); ALT ALANINE AMINOTRANSFERASE 11 IU/L (10-60); AST ASPARTATE AMINOTRANSFERASE 18 IU/L (10-42); BUN - BLOOD UREA NITROGEN 18 mg/dL (6-20); CALCIUM 9.2 mg/dL (8.5-10.3); CARBON DIOXIDE - CO2 28 mmol/L (21-32); CHLORIDE 102 mmol/L (101-111); CHOL/HDL RATIO 2.4 (<4.4); CHOLESTEROL 185 mg/dL; CREATININE 1.2 mg/dL (0.4-1.0); GFR - MDRD 43 (>89); GLUCOSE 92 mg/dL (70-100); HDL CHOLESTEROL 78 mg/dL; LDL CHOLESTEROL,CALCULATED 94 mg/dL; LDL/HDL RATIO 1.2 (<4.4); POTASSIUM 4.3 mmol/L (3.5-5.0); SODIUM 141 mmol/L (135-145); TOTAL PROTEIN 7.2 g/dL (6.7-8.2); TRIGLYCERIDES 65 mg/dL; VLDL CHOLESTEROL 13 mg/dL
== END 2022-01-01 07:05 | disposition home or self-care (01) ==
LOC: LAB.N 07:04
PROVIDERS: ATTEND Physician Assistant Medical
DX: E78.5 Hyperlipidemia, unspecified (principal)
CPT/HCPCS: 36415; 80053; 80061; 83721

== ENCOUNTER 2022-02-02 11:25 | Outpatient (CLI) | payer MEDICARE, OTHER ==
[2022-02-02 19:04] LABS: THYROID STIMULATING HORMONE 2.26 uIU/mL (0.34-5.60)
== END 2022-02-02 11:26 | disposition home or self-care (01) ==
LOC: LAB.N 11:25
PROVIDERS: ATTEND Physician Assistant Medical
DX: E03.9 Hypothyroidism, unspecified (principal)
CPT/HCPCS: 36415; 84443

== ENCOUNTER 2022-02-02 11:28 | Outpatient (CLI) | payer MEDICARE, OTHER ==
--- NOTE | 2022-02-02 12:26 | XRAY Report ---
PROCEDURE: Shoulder 2 View BILAT INDICATIONS: SHOULDER IMPINGEMENT SYNDROME, BILATERAL TECHNIQUE: 2 views of the shoulder were acquired. COMPARISON: None. FINDINGS: Bones: No fractures or dislocations. No suspicious bony lesions. Visualized ribs appear intact. M oderate to severe bilateral acromioclavicular degenerative narrowing. No erosions. Soft tissues: No suspicious soft tissue calcifications. IMPRESSION: Moderate to severe bilateral acromioclavicular arthritic narrowing. Reviewed by: Nicole Linder MD on 02/02/2022 12:24 PM PDT Approved by: Nicole Linder MD on 02/02/2022 12:24 PM PDT Station ID: [id number]
--- NOTE | 2022-02-02 17:04 | XRAY Report ---
PROCEDURE: Knee 3 View BILAT INDICATIONS: ARTHRITIS TECHNIQUE: 3 views of the bilateral knee(s) were acquired. COMPARISON: None. FINDINGS: Bones: No fractures or dislocations. No suspicious bony lesions. There is moderate to severe bilat eral medial as well as patellofemoral compartment narrowing. Periarticular osteophytes are present wi thout erosions. Mild lateral compartment narrowing is noted on the right, minimal on the left. All Soft tissues: No joint effusion. No suspicious soft tissue calcifications. IMPRESSION: Tricompartmental arthritic change as above. Reviewed by: Nicole Linder MD on 02/02/2022 5:02 PM PDT Approved by: Nicole Linder MD on 02/02/2022 5:02 PM PDT Station ID: [id number]
== END 2022-02-02 11:29 | disposition home or self-care (01) ==
LOC: DI.N 11:28
PROVIDERS: ATTEND Physician Assistant Medical
DX: M75.42 Impingement syndrome of left shoulder (principal); M75.41 Impingement syndrome of right shoulder; M19.012 Primary osteoarthritis, left shoulder; M19.011 Primary osteoarthritis, right shoulder; M17.0 Bilateral primary osteoarthritis of knee; E03.9 Hypothyroidism, unspecified
CPT/HCPCS: 36415; 84443

== ENCOUNTER 2022-09-25 20:43 | Outpatient (CLI) | payer MEDICARE, OTHER ==
--- NOTE | 2022-09-27 08:50 | Ultrasound Report ---
PROCEDURE: Duplex Ext Veins Bilateral INDICATIONS: Swelling TECHNIQUE: Real-time imaging, as well as color and pulse Doppler interrogation, were performed of the deep veins of both legs from the inguinal ligament to the popliteal fossa. COMPARISON: 03/07/2021 FINDINGS: The deep veins are normally compressible, and free of intraluminal thrombus. Color and pu lse Doppler demonstrate normal phasic intravascular flow. There is normal augmentation response to d istal compression maneuver. IMPRESSION: No evidence of deep venous thrombosis, bilateral lower extremities Reviewed by: Dawson Landis MD on 09/27/2022 7:49 AM [facility] Approved by: Dawson Landis MD on 09/27/2022 7:49 AM [facility] Station ID: [id number]
== END 2022-09-25 20:44 | disposition home or self-care (01) ==
LOC: DI 20:43
PROVIDERS: ATTEND Physician Assistant
DX: R60.0 Localized edema (principal)
CPT/HCPCS: 93970

== ENCOUNTER 2022-10-19 07:44 | Outpatient (CLI) | payer MEDICARE, OTHER ==
[2022-10-19 12:31] LABS: BASOPHILS % (AUTO) 0.2 %; EOSINOPHILS # (AUTO) 0.1 10^3/uL (0.0-0.7); EOSINOPHILS % (AUTO) 0.6 %; HCT - HEMATOCRIT 43.7 % (37.0-47.0); HGB - HEMOGLOBIN 14.1 g/dL (12.0-16.0); LYMPHOCYTES # (AUTO) 1.8 10^3/uL (1.5-3.5); LYMPHOCYTES % (AUTO) 12.9 %; MEAN CORPUSCULAR HEMOGLOBIN 29.4 pg (27.0-31.0); MEAN CORPUSCULAR HGB CONC 32.3 g/dL (32.0-36.0); MONOCYTES # (AUTO) 1.2 10^3/uL (0.0-1.0); MONOCYTES % (AUTO) 8.3 %; PLT - PLATELET COUNT 380 10^3/uL (130-450); RED CELL DISTRIBUTION WIDTH 13.5 % (12.0-15.0); WHITE BLOOD COUNT 14.3 x10^3/uL (4.8-10.8)
[2022-10-19 13:02] LABS: ALBUMIN 3.6 g/dL (3.2-5.5); ALBUMIN/GLOBULIN RATIO 1.2 (1.0-2.2); ALKALINE PHOSPHATASE 56 IU/L (42-121); ALT ALANINE AMINOTRANSFERASE 30 IU/L (10-60); AST ASPARTATE AMINOTRANSFERASE 20 IU/L (10-42); BILIRUBIN,TOTAL 0.9 mg/dL (0.2-1.0); BUN - BLOOD UREA NITROGEN 21 mg/dL (6-20); CARBON DIOXIDE - CO2 27 mmol/L (21-32); CHLORIDE 103 mmol/L (101-111); CHOL/HDL RATIO 2.7 (<4.4); CHOLESTEROL 157 mg/dL; CREATININE 0.9 mg/dL (0.4-1.0); GFR - MDRD 60 (>89); GLUCOSE 87 mg/dL (70-100); HDL CHOLESTEROL 58 mg/dL; LDL CHOLESTEROL,CALCULATED 81 mg/dL; LDL/HDL RATIO 1.4 (<4.4); POTASSIUM 4.2 mmol/L (3.5-5.0); SODIUM 138 mmol/L (135-145); TOTAL PROTEIN 6.6 g/dL (6.7-8.2); TRIGLYCERIDES 92 mg/dL; VLDL CHOLESTEROL 18 mg/dL
[2022-10-19 13:06] LABS: THYROID STIMULATING HORMONE 0.91 uIU/mL (0.34-5.60)
== END 2022-10-19 07:45 | disposition home or self-care (01) ==
LOC: LAB.N 07:44
PROVIDERS: ATTEND Nurse Practitioner Family
DX: I47.1 Supraventricular tachycardia (principal); E78.5 Hyperlipidemia, unspecified
CPT/HCPCS: 36415; 80053; 80061; 83721; 84443; 85025

== ENCOUNTER 2022-11-03 11:29 | Emergency (ER) | payer MEDICARE, OTHER ==
--- NOTE | 2022-11-03 11:51 | ED Physician Documentation ---
History of Present Illness - Stated complaint Stated Complaint: FATIGUE - Chief complaint Chief Complaint: General - History obtained from History obtained from: Patient - History of Present Illness Pain level max: 6 Pain level now: 5 - Additonal information Additional information: Patient is a 77-year-old female who presents to the emergency department complaining of increasing back pain over the past several months. She also states her legs have become weaker than usual over that same time. She does not use any assistive devices to walk. She states that she needs to have help getting up and down from chairs and from the toilet. This been ongoing for several weeks. She states that she saw her doctor and was given steroids which did help but she is still having pain in her back. Does not recall any injuries. Worse with movement, better with rest. No fevers. No chills. No cough. No congestion. No nausea or vomiting. Review of Systems Constitutional: denies: Fever, Chills Nose: denies: Rhinorrhea / runny nose, Congestion Throat: denies: Sore throat Cardiac: denies: Chest pain / pressure Respiratory: denies: Cough GI: denies: Nausea, Vomiting, Diarrhea : denies: Dysuria, Frequency, Hesitancy, Unable to Void, Incontinent Skin: denies: Rash Musculoskeletal: denies: Neck pain Neurologic: denies: Focal weakness, Numbness, Confused, Headache PD PAST MEDICAL HISTORY - Past Medical History Cardiovascular: Hypertension, Atrial fibrillation Respiratory: Sleep apnea, CPAP use Neuro: None Endocrine/Autoimmune: None GI: GERD : Chronic bladder infection HEENT: Chronic vision loss, Chronic sinusitis Psych: Claustrophobia Musculoskeletal: Osteoarthritis Derm: Other - Past Surgical History Past Surgical History: No General: Cholecystectomy, Appendectomy, Colonoscopy HEENT: Cataracts, Other - Present Medications Home Medications: Ambulatory Orders Medication Instructions Recorded Confirmed Levothyroxine [Synthroid] 100 mcg PO DAILY 10/10/15 03/07/21 hydroCHLOROthiazide 12.5 mg PO DAILY 10/10/15 03/07/21 [Hydrochlorothiazide] Apixaban [Eliquis] 5 mg PO BID 02/05/21 03/07/21 Diltiazem HCl [Cardizem Cd] 360 mg PO DAILY 02/05/21 03/07/21 Simvastatin [Zocor] 20 mg PO DAILY 02/05/21 03/07/21 dexAMETHasone [Decadron] 4 mg PO DAILY #5 tablet 03/07/21 Oxycodone HCl/Acetaminophen 1 - 2 each PO Q6H PRN #14 tablet 11/03/22 [Percocet 5-325 mg Tablet] MDD 6 tabs predniSONE [Deltasone] 20 mg PO DAILY #5 tablet 11/03/22 - Allergies Allergies/Adverse Reactions: Allergies Allergy/AdvReac Type Severity Reaction Status Date / Time Sulfa (Sulfonamide Allergy Unknown Verified 11/03/22 11:44 Antibiotics) - Social History Does the pt smoke?: No Smoking Status: Never smoker Does the pt drink ETOH?: Yes Does the pt have substance abuse?: No - Immunizations Immunizations are current?: Yes PD ED PE NORMAL - Vitals Vital signs reviewed: Yes - General General: Alert and oriented X 3, No acute distress - HEENT HEENT: Moist mucous membranes - Neck Neck: Supple, no meningeal sign - Cardiac Cardiac: RRR - Respiratory Respiratory: No respiratory distress, Clear bilaterally - Abdomen Abdomen: Soft, Non tender, Non distended - Back Back: No spinal TTP (No midline tenderness to palpation or percussion. No step- off or deformity.) - Derm Derm: Warm and dry - Extremities Extremities: No edema - Neuro Neuro: Alert and oriented X 3, No sensory deficit, Normal speech, Other (3 out of 5 strength bilateral lower extremities. Normal bilateral lower extremity patellar and ankle jerk reflexes. Normal great toe extension bilaterally. no s addle anesthesia) Eye Opening: Spontaneous Motor: Obeys Commands Verbal: Oriented GCS Score: 15 Results - Vitals Vitals: Vital Signs - 24 hr 11/03/22 11/03/22 11/03/22 11:40 15:44 18:20 Temperature 36.6 C Heart Rate 67 70 70 Respiratory 15 Rate Blood Pressure 147/70 H 144/60 H 136/76 H O2 Saturation 100 100 Oxygen O2 Source Room air - Labs Labs: Laboratory Tests 11/03/22 11/03/22 11:57 11:57 WBC 8.9 RBC 3.93 L Hgb 11.7 L Hct 35.4 L MCV 90.1 MCH 29.8 MCHC 33.1 RDW 14.1 Plt Count 402 MPV 10.0 Neut # (Auto) 6.7 H Lymph # (Auto) 1.0 L [place] # (Auto) 0.9 Eos # (Auto) 0.2 Baso # (Auto) 0.0 Absolute Nucleated RBC 0.00 Nucleated RBC % 0.0 Sodium 136 Potassium 3.7 Chloride 102 Carbon Dioxide 25 Anion Gap 9.0 BUN 13 Creatinine 1.0 Estimated GFR (MDRD) 53 L Glucose 105 H Calcium 8.5 Phosphorus 2.9 Magnesium 1.6 L Total Bilirubin 0.9 AST 18 ALT 15 Alkaline Phosphatase 79 Total Protein 6.2 L Albumin 2.8 L Globulin 3.4 Albumin/Globulin Ratio 0.8 L - Rads (name of study) L-spine x-ray Radiology: Final report received, See rad report L-spine MRI Radiology: Final report received, See rad report PD MEDICAL DECISION MAKING - ED course Complexity details: reviewed results, re-evaluated patient, considered differential, d/w patient ED course: Patient with an L4 compression fracture on x-ray. MRI reveals this to be acute/subacute. She was having significant weakness to her legs, therefore the MRI was performed to rule out cauda equina. Patient feels better after pain medications and is ambulating quite well with a walker. We will place her on a small dose of steroids as she states that this is helped her pain in her back in the past. No evidence of cauda equina, epidural abscess. No unstable fracture. Likely that the fracture was several weeks ago. Patient and family counseled regarding signs and symptoms for which I believe and urgent re- evaluation would be necessary. Patient with good understanding of and agreement to plan and is comfortable going home at this time This document was made in part using voice recognition software. While efforts are made to proofread this document, sound alike and grammatical errors may occur. Departure - Departure Disposition: 01 Home, Self Care Clinical Impression: Compression fracture of L4 vertebra Qualifiers: Encounter type: initial encounter Qualified Code(s): S32.040A - Wedge compression fracture of fourth lumbar vertebra, initial encounter for closed fracture Condition: Good Instructions: ED Fx Comp Vertebral Follow-Up: your,doctor in 1 week [Other] Prescriptions: predniSONE [Deltasone] 20 mg PO DAILY #5 tablet Oxycodone HCl/Acetaminophen [Percocet 5-325 mg Tablet] 1 - 2 each PO Q6H PRN #14 tablet MDD 6 tabs PRN Reason: pain Comments: Please follow-up with your doctor for further care. Return if you worsen. You should use a walker to help you ambulate at home. Your lumbar spine MRI is below. You do have a acute/subacute compression fracture of L4. Your prescriptions were sent to [facility] in [place]. I am prescribing a short course of narcotic pain medication for you. These are potentially dangerous and addictive medications that should be used carefully. These medications may constipate you. Take an eulu-old-sjcklkl stool softener (docusate) twice daily with plenty of water while taking these medications. If you go 24 hours without a bowel movement, take djva-hev-gfdlxxs miralax, per package instructions. Do not drink or drive while taking these medications. If you received narcotic or sedating medications while in the emergency department, do not drive for 24 hours. Store this medication in a safe, secure place and out of reach of children. It is a violation of federal law to give or sell this medication to another person or to use in a manner other than prescribed. The ED will not refill narcotic prescriptions, including prescriptions lost or stolen. To dispose of unwanted medications: 1. [facility] at [address] in [place] has a medication drop box. They accept prescription medications (in pill form) Wednesday through Wednesday 9:00 a.m. to 5:00 p.m. 2. The [facility] accepts prescription medications (in pill form only) for disposal year round. Call for more information. 3. Contact the [facility] for the next [facility] sponsored prescription drug collection event. , [phone], or [phone]; MRI L Spine FINDINGS: Image quality: Excellent. Alignment and Curvature: 5 nonrib-bearing lumbar vertebral bodies. Rudimentary S1-S2 disc. Trace anterolisthesis of L5 on S1. Trace retrolisthesis of L2 on L3. Bone Marrow: Marrow is of normal overall signal. Mild subacute or acute superior endplate compression of L4, with associated bony edema. Approximately 20% midportion vertebral body height loss. No significant retropulsion. Spinal Cord: Conus medullaris terminates at the top of L2 level. Visualized cord demonstrates normal signal and size. Paraspinous Soft Tissues: No paravertebral masses. T11-T12: No canal stenosis or foraminal stenosis. T12-L1: No canal stenosis or foraminal stenosis. L1-L2: Disc bulge. Mild facet hypertrophy. No canal stenosis or foraminal stenosis. L2-L3: Disc bulge. Facet hypertrophy. No canal stenosis. Moderate left foraminal stenosis with mild flattening deformity on the exiting left L2 nerve root. L3-L4: Facet hypertrophy. Borderline canal stenosis. There is mild right foraminal narrowing and moderate left foraminal narrowing with flattening deformity on the exiting left L3 nerve root. L4-L5: Disc bulge. Facet hypertrophy. Borderline canal stenosis. Mild bilateral foraminal stenosis. L5-S1: Prominent bilateral facet hypertrophy. Anterolisthesis of L4 on L5. Mild disc bulge. No central canal stenosis. Moderate left lateral recess stenosis. Mild to moderate right foraminal narrowing. Moderate left foraminal narrowing with mild flattening deformity on the exiting left L5 nerve root. IMPRESSION: 1. There is a mild acute or subacute compression fracture of L4. 2. Diffuse degenerative change with multilevel facet arthropathy. 3. Borderline canal stenosis at L3-L4 and L4-L5. Left lateral recess stenosis at L5-S1. 4. Multilevel foraminal narrowing as described above. Discharge Date/Time: 11/03/22 18:20
[2022-11-03 12:02] LABS: BASOPHILS % (AUTO) 0.3 %; EOSINOPHILS # (AUTO) 0.2 10^3/uL (0.0-0.7); EOSINOPHILS % (AUTO) 2.7 %; HCT - HEMATOCRIT 35.4 % (37.0-47.0); HGB - HEMOGLOBIN 11.7 g/dL (12.0-16.0); LYMPHOCYTES % (AUTO) 11.7 %; MEAN CORPUSCULAR HEMOGLOBIN 29.8 pg (27.0-31.0); MEAN CORPUSCULAR HGB CONC 33.1 g/dL (32.0-36.0); MEAN CORPUSCULAR VOLUME 90.1 fL (81.0-99.0); MONOCYTES # (AUTO) 0.9 10^3/uL (0.0-1.0); MONOCYTES % (AUTO) 9.9 %; NEUTROPHILS # (AUTO) 6.7 10^3/uL (1.5-6.6); NEUTROPHILS % (AUTO) 75.2 %; PLT - PLATELET COUNT 402 10^3/uL (130-450); RED BLOOD COUNT 3.93 10^6/uL (4.20-5.40); RED CELL DISTRIBUTION WIDTH 14.1 % (12.0-15.0); WHITE BLOOD COUNT 8.9 x10^3/uL (4.8-10.8)
[2022-11-03 12:14] LABS: ALBUMIN 2.8 g/dL (3.2-5.5); ALBUMIN/GLOBULIN RATIO 0.8 (1.0-2.2); BILIRUBIN,TOTAL 0.9 mg/dL (0.2-1.0); CALCIUM 8.5 mg/dL (8.5-10.3); MAGNESIUM 1.6 mg/dL (1.7-2.8); PHOSPHORUS 2.9 mg/dL (2.5-4.6); POTASSIUM 3.7 mmol/L (3.5-5.0); TOTAL PROTEIN 6.2 g/dL (6.7-8.2)
--- NOTE | 2022-11-03 12:44 | XRAY Report ---
PROCEDURE: Lumbar Spine 2 View INDICATIONS: low back pain no injury TECHNIQUE: 2 views of the lumbar spine were acquired. COMPARISON: Two-view CXR 06/20/2019. MRI lumbar spine at 08/31/2014. FINDINGS: Bones: 5 wws-btz-hdhqdfs vertebrae are present. There is normal bony alignment. Small vertebral bod y osteophytes. Mild height loss at L4. There is minimal anterolisthesis of L4 on L5 and L5 on S1. No suspicious bony lesions. Soft tissues: Overlying bowel gas pattern is normal. Cholecystectomy clips. No suspicious soft tiss ue calcifications. IMPRESSION: Mild L4 compression fracture which is new in the interval compared to 2013. Reviewed by: Jasson Gregorio MD on 11/03/2022 12:42 PM PST Approved by: Jasson Gregorio MD on 11/03/2022 12:42 PM PST Station ID: [id number]
[2022-11-03] MEDS ORDERED: oxyCODONE 5 MG TABLET PO STA (15:47)
--- NOTE | 2022-11-03 17:36 | MRI Report ---
PROCEDURE: LUMBAR SPINE WO INDICATIONS: low back pain, leg weakness TECHNIQUE: Noncontrast sagittal T1 spin echo and T2 fast echo, sagittal STIR, axial T1 and T2 fast spin echo thr ough the lumbar spine. In cases with scoliosis, additional coronal T2 fast spin echo may be performe d. COMPARISON: Lumbar spine MRI dated 08/31/2014, lumbar spine plain films from today.. FINDINGS: Image quality: Excellent. Alignment and Curvature: 5 nonrib-bearing lumbar vertebral bodies. Rudimentary S1-S2 disc. Trace ante rolisthesis of L5 on S1. Trace retrolisthesis of L2 on L3. Bone Marrow: Marrow is of normal overall signal. Mild subacute or acute superior endplate compressio n of L4, with associated bony edema. Approximately 20% midportion vertebral body height loss. No sign ificant retropulsion. Spinal Cord: Conus medullaris terminates at the top of L2 level. Visualized cord demonstrates tegan l signal and size. Paraspinous Soft Tissues: No paravertebral masses. T11-T12: No canal stenosis or foraminal stenosis. T12-L1: No canal stenosis or foraminal stenosis. L1-L2: Disc bulge. Mild facet hypertrophy. No canal stenosis or foraminal stenosis. L2-L3: Disc bulge. Facet hypertrophy. No canal stenosis. Moderate left foraminal stenosis with mil d flattening deformity on the exiting left L2 nerve root. L3-L4: Facet hypertrophy. Borderline canal stenosis. There is mild right foraminal narrowing and mo derate left foraminal narrowing with flattening deformity on the exiting left L3 nerve root. L4-L5: Disc bulge. Facet hypertrophy. Borderline canal stenosis. Mild bilateral foraminal stenosis. L5-S1: Prominent bilateral facet hypertrophy. Anterolisthesis of L4 on L5. Mild disc bulge. No cent ral canal stenosis. Moderate left lateral recess stenosis. Mild to moderate right foraminal narrowing . Moderate left foraminal narrowing with mild flattening deformity on the exiting left L5 nerve root. IMPRESSION: 1. There is a mild acute or subacute compression fracture of L4. 2. Diffuse degenerative change with multilevel facet arthropathy. 3. Borderline canal stenosis at L3-L4 and L4-L5. Left lateral recess stenosis at L5-S1. 4. Multilevel foraminal narrowing as described above. Reviewed by: Giovani Cid MD on 11/03/2022 5:34 PM PST Approved by: Giovani Cid MD on 11/03/2022 5:34 PM PST Station ID: [id number]
[2022-11-03] MEDS ORDERED: predniSONE 20 MG TABLET PO STA (17:52)
[2022-11-03 18:20] VITALS: BP 136/76
== END 2022-11-03 18:20 | disposition home or self-care (01) ==
LOC: EDUNIT# → ED 11:29
DX: S32.040A Wedge compression fracture of fourth lumbar vertebra, initial encounter for closed fracture (principal); I48.91 Unspecified atrial fibrillation; I10 Essential (primary) hypertension; G47.30 Sleep apnea, unspecified
CPT/HCPCS: 36415; 72100; 72148; 80053; 83735; 84100; 85025; 99284; A9270; J7512

== ENCOUNTER → 2022-11-03 | Outpatient (CLI) | payer MEDICARE, OTHER | END | disposition critical access hospital (66) | LOC: EMS 11:06 | DX: R53.1 Weakness (principal); M54.6 Pain in thoracic spine; Z74.09 Other reduced mobility | CPT/HCPCS: A0425; A0429 ==

== ENCOUNTER 2022-11-20 13:25 | Outpatient (CLI) | payer MEDICARE, OTHER | END 2022-11-20 13:26 | disposition home or self-care (01) | LOC: LAB.N 13:25 | PROVIDERS: ATTEND Family Medicine | DX: M81.0 Age-related osteoporosis without current pathological fracture (principal) | CPT/HCPCS: 36415; 82306 ==

== ENCOUNTER 2023-02-03 12:40 | Outpatient (CLI) | payer MEDICARE, OTHER ==
--- NOTE | 2023-02-03 13:42 | DEXA Report ---
PROCEDURE: Dexa Spine and/or Hip INDICATIONS: POST MENOPAUSAL TECHNIQUE: Dual energy x-ray absorptiometry (DXA) was performed on a [employer] System. Regions measur ed are the AP Spine, femoral neck, and if needed forearm. COMPARISON: 01/16/2020, 09/10/2016 FINDINGS: Lumbar Spine: Bone Mineral Density 0.949 g/cm/cm,T score -1.9, osteopenia. No statistical change. Left Femoral Neck: Bone Mineral Density 0.603 g/cm/cm, T score -3.1, osteoporosis. Left Hip: Bone Mineral Density 0.656 g/cm/cm,T score -2.8, statistically decreased bone mineral density compar ed with prior. (T score greater or equal to -1.0: NORMAL) (T score from -1.1 to -2.4: OSTEOPENIA) (T score less than or equal to -2.5 to: OSTEOPOROSIS) Impression: Osteoporosis. Statistically decreased bone mineral density of the left hip. Patients with diagnosis of osteoporosis or osteopenia should have regular bone mineral density assess ment. For those eligible for Medicare, routine testing is allowed once every 2 years. Testing frequ ency can be increased for patients who have rapidly progressing disease or for those who are receivin g medical therapy to restore bone mass. Reviewed by: Enoch Stone on 02/03/2023 1:41 PM PDT Approved by: Enoch Stone on 02/03/2023 1:41 PM PDT Station ID: [id number]
== END 2023-02-03 12:41 | disposition home or self-care (01) ==
LOC: DI 12:40
PROVIDERS: ATTEND Physician Assistant Medical
DX: M81.0 Age-related osteoporosis without current pathological fracture (principal); Z78.0 Asymptomatic menopausal state

== ENCOUNTER 2023-04-21 07:06 | Outpatient (CLI) | payer MEDICARE, OTHER ==
[2023-04-21 12:06] LABS: BASOPHILS # (AUTO) 0.1 10^3/uL (0.0-0.1); BASOPHILS % (AUTO) 0.4 %; EOSINOPHILS # (AUTO) 0.3 10^3/uL (0.0-0.7); EOSINOPHILS % (AUTO) 2.3 %; HCT - HEMATOCRIT 34.4 % (37.0-47.0); HGB - HEMOGLOBIN 10.8 g/dL (12.0-16.0); LYMPHOCYTES # (AUTO) 1.7 10^3/uL (1.5-3.5); LYMPHOCYTES % (AUTO) 14.7 %; MEAN CORPUSCULAR HEMOGLOBIN 27.7 pg (27.0-31.0); MEAN CORPUSCULAR HGB CONC 31.4 g/dL (32.0-36.0); MEAN CORPUSCULAR VOLUME 88.2 fL (81.0-99.0); MEAN PLATELET VOLUME 9.9 fL (7.9-10.8); MONOCYTES # (AUTO) 1.1 10^3/uL (0.0-1.0); MONOCYTES % (AUTO) 9.8 %; NEUTROPHILS # (AUTO) 8.2 10^3/uL (1.5-6.6); NEUTROPHILS % (AUTO) 72.4 %; PLT - PLATELET COUNT 639 10^3/uL (130-450); RED CELL DISTRIBUTION WIDTH 17.2 % (12.0-15.0); WHITE BLOOD COUNT 11.3 x10^3/uL (4.8-10.8)
[2023-04-21 13:19] LABS: ALBUMIN 2.9 g/dL (3.2-5.5); ALBUMIN/GLOBULIN RATIO 0.7 (1.0-2.2); ALKALINE PHOSPHATASE 83 IU/L (42-121); ALT ALANINE AMINOTRANSFERASE 10 IU/L (10-60); AST ASPARTATE AMINOTRANSFERASE 16 IU/L (10-42); BILIRUBIN,TOTAL 0.7 mg/dL (0.2-1.0); BUN - BLOOD UREA NITROGEN 14 mg/dL (6-20); CALCIUM 8.7 mg/dL (8.5-10.3); CARBON DIOXIDE - CO2 28 mmol/L (21-32); CHLORIDE 100 mmol/L (101-111); CHOL/HDL RATIO 2.7 (<4.4); CHOLESTEROL 146 mg/dL; CREATININE 0.9 mg/dL (0.4-1.0); GFR - MDRD 60 (>89); GLUCOSE 96 mg/dL (70-100); HDL CHOLESTEROL 55 mg/dL; LDL CHOLESTEROL,CALCULATED 75 mg/dL; LDL/HDL RATIO 1.4 (<4.4); POTASSIUM 4.3 mmol/L (3.5-5.0); SODIUM 136 mmol/L (135-145); TOTAL PROTEIN 6.9 g/dL (6.7-8.2); TRIGLYCERIDES 78 mg/dL; VLDL CHOLESTEROL 16 mg/dL
== END 2023-04-21 07:07 | disposition home or self-care (01) ==
LOC: LAB.N 07:06
PROVIDERS: ATTEND Physician Assistant Medical
DX: E78.5 Hyperlipidemia, unspecified (principal); M17.0 Bilateral primary osteoarthritis of knee
CPT/HCPCS: 36415; 80053; 80061; 83721; 85025

== ENCOUNTER 2023-05-05 07:49 | Outpatient (CLI) | payer MEDICARE, OTHER ==
[2023-05-05 12:09] LABS: BASOPHILS # (AUTO) 0.1 10^3/uL (0.0-0.1); BASOPHILS % (AUTO) 0.5 %; EOSINOPHILS # (AUTO) 0.4 10^3/uL (0.0-0.7); EOSINOPHILS % (AUTO) 3.4 %; HCT - HEMATOCRIT 35.8 % (37.0-47.0); LYMPHOCYTES # (AUTO) 1.4 10^3/uL (1.5-3.5); LYMPHOCYTES % (AUTO) 13.8 %; MEAN CORPUSCULAR HEMOGLOBIN 27.3 pg (27.0-31.0); MEAN CORPUSCULAR HGB CONC 30.7 g/dL (32.0-36.0); MEAN CORPUSCULAR VOLUME 88.8 fL (81.0-99.0); MEAN PLATELET VOLUME 10.4 fL (7.9-10.8); MONOCYTES % (AUTO) 9.9 %; NEUTROPHILS # (AUTO) 7.5 10^3/uL (1.5-6.6); PLT - PLATELET COUNT 654 10^3/uL (130-450); RED BLOOD COUNT 4.03 10^6/uL (4.20-5.40); RED CELL DISTRIBUTION WIDTH 17.3 % (12.0-15.0); WHITE BLOOD COUNT 10.4 x10^3/uL (4.8-10.8)
[2023-05-05 12:53] LABS: FERRITIN 436.1 ng/mL (11.0-306.8)
[2023-05-05 12:54] LABS: % IRON SATURATION 25 % (20-50); IRON 60 ug/dL (28-170); TOTAL IRON BINDING CAPACITY 242 ug/dL (250-450); TRANSFERRIN 173 mg/dL (192-382)
[2023-05-05 12:56] LABS: FOLATE 7.06 ng/mL (5.90 - >24.8)
== END 2023-05-05 07:50 | disposition home or self-care (01) ==
LOC: LAB.N 07:49
PROVIDERS: ATTEND Physician Assistant Medical
DX: D64.9 Anemia, unspecified (principal)
CPT/HCPCS: 36415; 82607; 82728; 82746; 83540; 84466; 85025

== ENCOUNTER 2023-05-13 08:00 | Outpatient (CLI) | payer MEDICARE, OTHER ==
[2023-05-13 18:35] LABS: FECAL OCCULT BLOOD (FIT) POSITIVE (NEGATIVE)
== END 2023-05-13 23:59 | disposition home or self-care (01) ==
LOC: LAB.N 08:00
PROVIDERS: ATTEND Physician Assistant Medical
DX: D64.9 Anemia, unspecified (principal)
CPT/HCPCS: 82274

== ENCOUNTER 2023-12-28 15:53 | Outpatient (CLI) | payer MEDICARE, OTHER ==
--- NOTE | 2023-12-28 17:38 | XRAY Report ---
PROCEDURE: Hand 3+V RT INDICATIONS: SWOLLEN JOINT, RIGHT TECHNIQUE: 3 views of the hand(s) acquired. COMPARISON: None. FINDINGS: Bones: No fractures or dislocations. No suspicious bony lesions. Prominent first CMC degenerative narrowing. Overall moderate IP scattered degenerative narrowing. Radiocarpal narrowing is also prese nt. Very minimal periarticular osteophytes are present. No distinct erosions. Soft tissues: No suspicious soft tissue calcifications or masses. IMPRESSION: Arthritic changes most severe at the first CMC joint. Reviewed by: Nicole Linder MD on 12/28/2023 5:37 PM PST Approved by: Nicole Linder MD on 12/28/2023 5:37 PM PST Station ID: [id number]
== END 2023-12-28 15:54 | disposition home or self-care (01) ==
LOC: DI 15:53
PROVIDERS: ATTEND Family Medicine
DX: M25.441 Effusion, right hand (principal); M18.11 Unilateral primary osteoarthritis of first carpometacarpal joint, right hand

== ENCOUNTER 2023-12-29 12:09 | Outpatient (CLI) | payer MEDICARE, OTHER ==
[2023-12-29 17:43] LABS: BASOPHILS % (AUTO) 0.5 %; EOSINOPHILS # (AUTO) 0.2 10^3/uL (0.0-0.7); EOSINOPHILS % (AUTO) 2.2 %; HCT - HEMATOCRIT 35.7 % (37.0-47.0); HGB - HEMOGLOBIN 11.4 g/dL (12.0-16.0); LYMPHOCYTES # (AUTO) 1.6 10^3/uL (1.5-3.5); LYMPHOCYTES % (AUTO) 18.9 %; MEAN CORPUSCULAR HEMOGLOBIN 28.6 pg (27.0-31.0); MEAN CORPUSCULAR HGB CONC 31.9 g/dL (32.0-36.0); MEAN CORPUSCULAR VOLUME 89.7 fL (81.0-99.0); MONOCYTES # (AUTO) 0.9 10^3/uL (0.0-1.0); MONOCYTES % (AUTO) 10.2 %; NEUTROPHILS # (AUTO) 5.6 10^3/uL (1.5-6.6); PLT - PLATELET COUNT 435 10^3/uL (130-450); RED BLOOD COUNT 3.98 10^6/uL (4.20-5.40); RED CELL DISTRIBUTION WIDTH 15.1 % (12.0-15.0); WHITE BLOOD COUNT 8.3 x10^3/uL (4.8-10.8)
[2023-12-29 18:18] LABS: RHEUMATOID FACTOR NEGATIVE (Negative)
== END 2023-12-29 12:10 | disposition home or self-care (01) ==
LOC: LAB.N 12:09
PROVIDERS: ATTEND Family Medicine
DX: M25.40 Effusion, unspecified joint (principal)
CPT/HCPCS: 36415; 84550; 85025; 85651; 86200; 86430

== ENCOUNTER 2024-02-16 15:49 | Outpatient (CLI) | payer MEDICARE, OTHER ==
[2024-02-16 17:56] LABS: BASOPHILS # (AUTO) 0.1 10^3/uL (0.0-0.1); BASOPHILS % (AUTO) 0.6 %; EOSINOPHILS # (AUTO) 0.2 10^3/uL (0.0-0.7); HGB - HEMOGLOBIN 11.7 g/dL (12.0-16.0); LYMPHOCYTES # (AUTO) 1.6 10^3/uL (1.5-3.5); LYMPHOCYTES % (AUTO) 19.7 %; MEAN CORPUSCULAR HEMOGLOBIN 29.5 pg (27.0-31.0); MEAN CORPUSCULAR HGB CONC 32.5 g/dL (32.0-36.0); MEAN CORPUSCULAR VOLUME 90.7 fL (81.0-99.0); MEAN PLATELET VOLUME 10.2 fL (7.9-10.8); MONOCYTES % (AUTO) 12.1 %; NEUTROPHILS # (AUTO) 5.1 10^3/uL (1.5-6.6); NEUTROPHILS % (AUTO) 65.5 %; PLT - PLATELET COUNT 430 10^3/uL (130-450); RED BLOOD COUNT 3.97 10^6/uL (4.20-5.40); WHITE BLOOD COUNT 7.9 x10^3/uL (4.8-10.8)
== END 2024-02-16 15:50 | disposition home or self-care (01) ==
LOC: LAB.N 15:49
PROVIDERS: ATTEND Physician Assistant Medical
DX: M25.40 Effusion, unspecified joint (principal)
CPT/HCPCS: 36415; 85025; 85651; 86140

== ENCOUNTER 2024-02-24 15:31 | Outpatient (CLI) | payer MEDICARE, OTHER ==
--- NOTE | 2024-02-28 09:20 | Mammography Report ---
BILATERAL DIGITAL SCREENING MAMMOGRAM: 02/24/2024 CLINICAL: Routine screening. Comparison is made to exams dated: 12/18/2021 mammogram, 10/22/2020 mammogram, 10/18/2019 ultrasound, 10/18/2019 mammogram, 10/12/2019 mammogram, and 08/16/2018 mammogram - [facility]. Both breasts are heterogeneously dense, which may obscure small masses (category c / 51-75% glandular tissue). There are benign vascular calcifications in both breasts. No significant masses, calcifications, or other findings are seen in either breast. There has been no significant interval change. IMPRESSION: BENIGN There is no mammographic evidence of malignancy. A 1 year screening mammogram is recommended. Based on the Tyrer Cuzick model (a risk assessment model) the patient's lifetime risk is 2.6% and her 10 year risk is 0.0%. According to the ACR, ACS, and NCCN guidelines, an annual breast MRI exam irina g with mammogram is recommended if the patient's lifetime risk is 20% or greater. This exam was interpreted at Station ID: [id number]. NOTE: For mammograms, a report in lay terms will be sent to the patient. Approximately 15% of breast malignancies will not be visualized mammographically. In the management of a palpable breast mass, a negative mammogram must not discourage biopsy of a clinically suspicious lesion. Electronically Signed By: Simin nash/mariana:02/25/2024 15:25:05 letter sent: No_Letter ACR BI-RADS Category 2: Benign Finding(s) 3342F PARENCHYMAL PATTERN: (D) - The breast(s) demonstrate(s) heterogeneously dense fibroglandular dianelys rubio. BI-RADS CATEGORY: (2) - 2 RECOMMENDATION: (ANNUAL) - Recommend routine annual screening mammography. [id number] 1 year screening LATERALITY: (B)
== END 2024-02-24 15:32 | disposition home or self-care (01) ==
LOC: DI.N 15:31
DX: Z12.31 Encounter for screening mammogram for malignant neoplasm of breast (principal); R92.333 Mammographic heterogeneous density, bilateral breasts

== ENCOUNTER 2024-03-28 12:31 | Emergency (ER) | payer MEDICARE, OTHER ==
--- NOTE | 2024-03-28 13:34 | CT Report ---
PROCEDURE: Head WO INDICATIONS: fall, head injury, takes eliquis TECHNIQUE: Noncontrast 4.5 mm thick angled axial sections acquired from the foramen magnum to the vertex. For r adiation dose reduction, the following was used: automated exposure control, adjustment of mA and/or kV according to patient size. COMPARISON: Brain MRI with and without contrast dated 10/12/2015. FINDINGS: Image quality: Excellent. CSF spaces: Basal cisterns are patent. No extra-axial fluid collections. Ventricles are normal in size and shape. Brain: No midline shift. No intracranial masses or hemorrhage. Costello-white matter interface is norm al. Intracranial carotid calcifications. Age-related volume loss and moderate small vessel ischemic change. Skull and face: Calvarium and visualized facial bones are intact, without suspicious lesions. Sinuses: Visualized sinuses and mastoids are clear. IMPRESSION: No acute intracranial pathology. Reviewed by: Giovani Cid MD on 03/28/2024 1:33 PM PDT Approved by: Giovani Cid MD on 03/28/2024 1:33 PM PDT Station ID: [id number]
--- NOTE | 2024-03-28 14:08 | ED Physician Documentation ---
PD HPI UPPER EXT INJURY - Stated complaint Stated Complaint: RT HAND LAC - Chief complaint Chief Complaint: Laceration - History obtained from History obtained from: Patient - Additonal information Additional information: Patient is an 78-year-old female presenting for evaluation of head injury and left hand laceration that occurred 2 nights ago. Patient got up quickly in the middle of the night and Fell down. She reports it was dark so is unsure of what she hit her head or her hand on. She is on a blood thinner Eliquis for history of A-fib. She denies a headache. She denies pain in the hand. She was having trouble controlling the bleeding in the hand which prompted her to come to the ER today. 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 : Chronic bladder infection HEENT: Chronic vision loss, Chronic sinusitis Psych: Claustrophobia Musculoskeletal: Osteoarthritis Derm: Other - Past Surgical History Past Surgical History: No General: Cholecystectomy, Appendectomy, Colonoscopy HEENT: Cataracts, Other - Present Medications Home Medications: Ambulatory Orders Medication Instructions Recorded Confirmed Levothyroxine [Synthroid] 100 mcg PO DAILY 10/10/15 03/07/21 Apixaban [Eliquis] 5 mg PO BID 02/05/21 03/07/21 Simvastatin [Zocor] 20 mg PO DAILY 02/05/21 03/07/21 predniSONE [Deltasone] 20 mg PO DAILY #5 tablet 11/03/22 Flecainide [Tambocar] 100 mg PO BID 03/28/24 carvediloL [Coreg] 6.5 mg PO BID 03/28/24 - Allergies Allergies/Adverse Reactions: Allergies Allergy/AdvReac Type Severity Reaction Status Date / Time Sulfa (Sulfonamide Allergy Unknown Verified 03/28/24 12:45 Antibiotics) - Social History Does the pt smoke?: No Smoking Status: Never smoker Does the pt drink ETOH?: Yes Does the pt have substance abuse?: No - Immunizations Immunizations are current?: Yes PD ED PE NORMAL - General General: Alert and oriented X 3, No acute distress, Well developed/nourished - HEENT HEENT: PERRL, EOMI, Moist mucous membranes, Pharynx benign, Other (Abrasion to nose) - Neck Neck: Supple, no meningeal sign, No bony TTP - Cardiac Cardiac: RRR, Strong equal pulses - Respiratory Respiratory: No respiratory distress, Clear bilaterally - Abdomen Abdomen: Soft, Non tender, Non distended - Extremities Extremities: Normal ROM s pain, Other (Skin tear to dorsum of left hand, no bony tenderness) - Neuro Neuro: Alert and oriented X 3, sales development specialist 2-12 intact, No motor deficit, No sensory deficit, Normal speech Eye Opening: Spontaneous Motor: Obeys Commands Verbal: Oriented GCS Score: 15 Results - Vitals Vitals: Vital Signs - 24 hr 03/28/24 03/28/24 12:38 14:20 Temperature 36.8 C Heart Rate 62 58 L Respiratory 16 18 Rate Blood Pressure 172/72 H 172/63 H O2 Saturation 98 97 Oxygen O2 Source Room air Procedures - Laceration (location) L hand Length in cm: 4 Wound type: Irregular, Flap (Skin tear) Wound preparation: Hibiclens, Irrigated copiously NS Skin layer closure: Steri strips Other: Patient tolerated well, No complications, Neurovascular intact, Dressing applied, Tetanus UTD PD Medical Decision Making - ED course Complexity details: reviewed results, d/w patient ED course: Patient is an 78-year-old female presenting for evaluation of laceration to the left hand that has still been bleeding. She is on Eliquis. She did hit her head. Peers to be mechanical fall. CT head was obtained from triage and is negative for intracranial hemorrhage. Wound was cleaned and closed with Steri- Strips. Her tetanus is up-to-date. She has no extremity tenderness. She has been ambulatory and without other complaints. Patient counseled on continued wound care instructions as well as concerning symptoms to return for. Departure - Departure Disposition: 01 Home, Self Care Clinical Impression: Laceration of left hand, Head injury Condition: Stable Instructions: ED Head Injury Closed, ED Laceration Ext Sutr Stap Tape Comments: Your last tetanus shot was in 2021. The CT scan of your head does not show any signs of bleeding. I did clean the wound on your left hand and applied Steri-Strips. These will fall off on their own in the next week or 2. Please continue to keep the wound clean and dry. Return to the ER with any concerning symptoms such as signs of infection. Forms: PCP List Discharge Date/Time: 03/28/24 14:20
[2024-03-28 14:27] VITALS: BP 172/63; O2SAT 97
== END 2024-03-28 14:20 | disposition home or self-care (01) ==
LOC: ED 12:31
DX: S09.90XA Unspecified injury of head, initial encounter (principal); S61.412A Laceration without foreign body of left hand, initial encounter; W19.XXXA Unspecified fall, initial encounter; I48.91 Unspecified atrial fibrillation; Z79.01 Long term (current) use of anticoagulants; I10 Essential (primary) hypertension; G47.30 Sleep apnea, unspecified
CPT/HCPCS: 99284

== ENCOUNTER 2024-04-10 11:12 | Outpatient (CLI) | payer MEDICARE, OTHER ==
[2024-04-10 18:29] LABS: ALBUMIN 3.9 g/dL (3.2-5.5); ALBUMIN/GLOBULIN RATIO 1.5 (1.0-2.2); BILIRUBIN,TOTAL 0.6 mg/dL (0.2-1.0); CALCIUM 9.5 mg/dL (8.5-10.3); CREATININE 1.1 mg/dL (0.6-1.3); POTASSIUM 4.3 mmol/L (3.5-4.5); TOTAL PROTEIN 6.5 g/dL (6.4-8.9)
== END 2024-04-10 11:13 | disposition home or self-care (01) ==
LOC: LAB.N 11:12
PROVIDERS: ATTEND Internal Medicine Cardiovascular Disease
DX: I48.0 Paroxysmal atrial fibrillation (principal)
CPT/HCPCS: 36415; 80053; 80061; 83721; 84443

== ENCOUNTER 2024-05-10 10:30 | Outpatient (CLI) | payer MEDICARE, OTHER ==
--- NOTE | 2024-05-10 17:17 | XRAY Report ---
PROCEDURE: Lumbar Spine 2-3V INDICATIONS: BACK PAIN TECHNIQUE: 3 views of the lumbar spine were acquired. COMPARISON: 3 views of the lumbar spine dated 11/03/22 FINDINGS: Surgical change: None. Bones: 5 mok-yhb-uskjazf vertebrae are present. There is grade IL5 on S1 anterolisthesis as before. There is trace L2-3 retrolisthesis which is new when compared with the prior study.. The superior L4 endplate compression deformity is redemonstrated and appears slightly evolved when compared with the study from 2021. No new compression deformities. Mild degenerative changes including osteophytosis an d endplate sclerosis are redemonstrated throughout the lumbar spine. Soft tissues: Overlying bowel gas pattern is normal. There are scattered atheromatous calcifications throughout the abdominal aorta. IMPRESSION: 1. Stable L4 compression deformity. 2. Stable degenerative change. 3. New, trace L2-3 retrolisthesis. 4. Aortic atherosclerosis. Reviewed by: Jacyln Govea MD on 05/10/2024 5:16 PM PDT Approved by: Jaclyn Govea MD on 05/10/2024 5:16 PM PDT Station ID: [id number]
== END 2024-05-10 10:45 | disposition home or self-care (01) ==
LOC: DI.N 10:30
PROVIDERS: ATTEND Physician Assistant Medical
DX: M47.816 Spondylosis without myelopathy or radiculopathy, lumbar region (principal); M43.16 Spondylolisthesis, lumbar region; M43.8X6 Other specified deforming dorsopathies, lumbar region; I70.0 Atherosclerosis of aorta; M43.17 Spondylolisthesis, lumbosacral region

== ENCOUNTER 2024-05-11 08:00 | Outpatient (CLI) | payer MEDICARE, OTHER ==
[2024-05-11 12:09] LABS: BILIRUBIN,URINE NEGATIVE (NEGATIVE); GLUCOSE, URINE (UA) NEGATIVE (NEGATIVE); KETONES,URINE (UA) NEGATIVE (NEGATIVE); LEUKOCYTE ESTERASE, URINE NEGATIVE (NEGATIVE); NITRITE,URINE POSITIVE (NEGATIVE); OCCULT BLOOD,URINE NEGATIVE (NEGATIVE); PH,URINE 5.5 PH (5.0-7.5); PROTEIN,URINE NEGATIVE (NEGATIVE); UROBILINOGEN,URINE 0.2 (NORMAL) E.U./dL (NORMAL)
[2024-05-11 12:16] LABS: CLARITY,URINE HAZY (CLEAR)
[2024-05-11 12:26] LABS: BACTERIA,URINE Many /HPF (None Seen); RBC,URINE 0-5 /HPF (0-5); SQUAMOUS EPITHELIAL CELL,UR MOD Squamous (<= Few)
== END 2024-05-11 23:59 | disposition home or self-care (01) ==
LOC: LAB.N 08:00
PROVIDERS: ATTEND Physician Assistant Medical
DX: M54.9 Dorsalgia, unspecified (principal)
CPT/HCPCS: 81001

== ENCOUNTER 2024-06-11 22:08 | Emergency (ER) | payer MEDICARE, OTHER ==
[2024-06-11 23:39] VITALS: O2SAT 99
--- NOTE | 2024-06-12 00:17 | ED Physician Documentation ---
PD HPI LOWER EXT INJURY - Stated complaint Stated Complaint: L LEG PX - Chief complaint Chief Complaint: Trauma Ext - History obtained from History obtained from: Patient - Additional information Additional information: The patient comes to the emergency department chief complaint of pain and swelling of left leg after hitting it on a metal table ride. Patient states around 1700 she was sitting down to eat dinner and pulled her chair in to scoot up to the table. She accidentally hit her left anterior tibial area against a stabilizing sy on the table. She states it hurt a little at the time but she did not think much of it and she did not even really hit it very hard. She went to lay down and take a nap afterward and woke up a couple hours later to find that she had some bruising and swelling in the area. The patient states that she then went down to went and sat down and watch TV and when she got up sometime later, the pain was excruciating and she could hardly walk to the bathroom. She states that its become more painful since. She has feeling in her foot that is at baseline, though she has been told she has peripheral neuropathy. She is on Eliquis for A-fib. No other complaints at this time. 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 : Chronic bladder infection HEENT: Chronic vision loss, Chronic sinusitis Psych: Claustrophobia Musculoskeletal: Osteoarthritis Derm: Other - Past Surgical History Past Surgical History: No General: Cholecystectomy, Appendectomy, Colonoscopy HEENT: Cataracts, Other - Present Medications Home Medications: Ambulatory Orders Medication Instructions Recorded Confirmed Levothyroxine [Synthroid] 100 mcg PO DAILY 10/10/15 06/11/24 Apixaban [Eliquis] 5 mg PO BID 02/05/21 06/11/24 Simvastatin [Zocor] 20 mg PO DAILY 02/05/21 06/11/24 Flecainide [Tambocar] 100 mg PO BID 03/28/24 06/11/24 carvediloL [Coreg] 12.5 mg PO BID 03/28/24 06/11/24 Prednisone [Annie] 1 mg PO DAILY 06/11/24 06/11/24 HYDROcod/ACETAM 5/325 [[place] 5/325] 1 - 2 tablet PO Q6H PRN #14 tablet 06/12/24 - Allergies Allergies/Adverse Reactions: Allergies Allergy/AdvReac Type Severity Reaction Status Date / Time Sulfa (Sulfonamide Allergy Unknown Verified 06/11/24 22:19 Antibiotics) - Social History Does the pt smoke?: No Smoking Status: Never smoker Does the pt drink ETOH?: Yes Does the pt have substance abuse?: No - Immunizations Immunizations are current?: Yes - POLST Patient has POLST: No PD ED PE NORMAL - Vitals Vital signs reviewed: Yes - General General: Alert and oriented X 3, No acute distress, Well developed/nourished - HEENT HEENT: Atraumatic, EOMI, Moist mucous membranes - Neck Neck: Supple, no meningeal sign - Cardiac Cardiac: Strong equal pulses (intact L PT and DP pulses ) - Respiratory Respiratory: No respiratory distress - Derm Derm: Warm and dry, Other (6 x 10 cm hematoma just medial to the L tibia. About 1.5 cm elevation without tension. No calf tenderness.) - Extremities Extremities: No deformity - Neuro Neuro: Alert and oriented X 3, Other (sensation intact distal LLE) - Psych Psych: Normal mood, Normal affect Results - Vitals Vitals: Oxygen O2 Source Room air PD Medical Decision Making - ED course Complexity details: considered differential, d/w patient ED course: I d/w pt that there is no sign of compartment syndrome. Given that the hematoma took hours to develop, I do not suspect a high-pressure bleed, and as such, expect that the hematoma will likely act to tamponade the bleeding. As such, I do not recommend I&D at this point in time. We have wrapped the pt's leg for her. I have given her analgesia, and we have discussed symptomatic management at home. Departure - Departure Disposition: 01 Home, Self Care Clinical Impression: Hematoma Condition: Stable Instructions: ED Hematoma Prescriptions: HYDROcod/ACETAM 5/325 [[place] 5/325] 1 - 2 tablet PO Q6H PRN #14 tablet PRN Reason: Pain Comments: You have developed a hematoma on your leg, which most likely started as a bruise. Because you are on Eliquis, You most likely had some venous bleeding that continued on and filled up the space between your skin and your muscle. You have good pulses in your foot and there is no evidence that circulation is being cut off. The pressure in the hematoma, or blood collection, is good and that it will help to stop the bleeding that caused it in the first place. We have also wrapped her leg to help provide some additional pressure. You may prop your foot up to help with any swelling that may develop. As we have discussed, the bruising will probably track to the back your leg and down because of gravity. This does not mean that you have developed injuries in other areas as wellit is simply the leak to blood tracking along through your tissues. In general, the bleeding from the hematoma stops within 24 hours. As we have discussed, the hematoma will go through various stages of liquefication and solidification before ultimately turning back to liquid and being reabsorbed by the body. This process takes some weeks, so do not be surprised if you have a hematoma for a while. However, the acutely painful portion usually only lasts for the first several days to a week. You have been given a dose of pain medication in the emergency department today, and a prescription for the same has been electronically transmitted To the [facility] pharmacy in [place]. You may take this medication to help with the pain. You may also employ ice packs to help with the pain and swelling, as well. Forms: PCP List Discharge Date/Time: 06/12/24 01:38
[2024-06-12] MEDS ORDERED: HYDROmorphone 1 MG/ML CARPUJECT ONE (00:43)
[2024-06-12] MEDS: HYDROmorphone 1 MG/ML CARPUJECT IM STA (00:44)
[2024-06-12 01:45] VITALS: BP 161/68
== END 2024-06-12 01:38 | disposition home or self-care (01) ==
LOC: ED 22:08
DX: S80.12XA Contusion of left lower leg, initial encounter (principal); W22.09XA Striking against other stationary object, initial encounter; Y93.89 Activity, other specified; Y92.89 Other specified places as the place of occurrence of the external cause; Z79.01 Long term (current) use of anticoagulants
CPT/HCPCS: 96372; 99283; J1170

== ENCOUNTER 2024-06-15 16:25 | Emergency (ER) | payer MEDICARE, OTHER ==
[2024-06-15 16:50] VITALS: BP 141/62; O2SAT 97
--- NOTE | 2024-06-15 16:52 | ED Physician Documentation ---
History of Present Illness - Stated complaint Stated Complaint: LT LEG PX - Chief complaint Chief Complaint: Ext Problem - History obtained from History obtained from: Patient - History of Present Illness Timing: How many days ago (4) Pain level max: 4 Pain level now: 4 - Additonal information Additional information: 78-year-old female states that 4 days ago she injured her left lower extremity. She is on Eliquis for atrial fibrillation. She states that she has developed a blister that appears to be full of blood, she came in today for evaluation of this. She states that she still has pain with walking. No knee pain, hip pain or back pain. No headache or vomiting. No fevers or chills. 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 : Chronic bladder infection HEENT: Chronic vision loss, Chronic sinusitis Psych: Claustrophobia Musculoskeletal: Osteoarthritis Derm: Other - Past Surgical History Past Surgical History: No General: Cholecystectomy, Appendectomy, Colonoscopy HEENT: Cataracts, Other - Present Medications Home Medications: Ambulatory Orders Medication Instructions Recorded Confirmed Levothyroxine [Synthroid] 100 mcg PO DAILY 10/10/15 06/11/24 Apixaban [Eliquis] 5 mg PO BID 02/05/21 06/11/24 Simvastatin [Zocor] 20 mg PO DAILY 02/05/21 06/11/24 Flecainide [Tambocar] 100 mg PO BID 03/28/24 06/11/24 carvediloL [Coreg] 12.5 mg PO BID 03/28/24 06/11/24 Prednisone [Annie] 1 mg PO DAILY 06/11/24 06/11/24 HYDROcod/ACETAM 5/325 [[place] 5/325] 1 - 2 tablet PO Q6H PRN #14 tablet 06/12/24 - Allergies Allergies/Adverse Reactions: Allergies Allergy/AdvReac Type Severity Reaction Status Date / Time Sulfa (Sulfonamide Allergy Unknown Verified 06/11/24 22:19 Antibiotics) - Social History Does the pt smoke?: No Smoking Status: Never smoker Does the pt drink ETOH?: Yes Does the pt have substance abuse?: No - Immunizations Immunizations are current?: Yes - POLST Patient has POLST: No PD ED PE NORMAL - Vitals Vital signs reviewed: Yes - General General: Alert and oriented X 3, No acute distress - HEENT HEENT: PERRL, Moist mucous membranes - Neck Neck: Supple, no meningeal sign - Cardiac Cardiac: RRR, Strong equal pulses - Respiratory Respiratory: No respiratory distress, Clear bilaterally - Abdomen Abdomen: Soft, Non tender, Non distended - Derm Derm: Warm and dry - Extremities Extremities: Other (Left lower extremity - There is bruising and swelling to the left lower leg, there is a hemorrhagic bullae, approximately 4 x 10 cm. There is no surrounding erythema or warmth. No streaking. No tense compartments. Neurovascularly intact) - Neuro Neuro: Alert and oriented X 3 - Psych Psych: Normal mood, Normal affect Results - Vitals Vitals: Vital Signs - 24 hr 06/15/24 16:40 Temperature 36.8 C Heart Rate 62 Respiratory 18 Rate Blood Pressure 141/62 H O2 Saturation 97 Oxygen O2 Source Room air PD Medical Decision Making - ED course Complexity details: considered differential, d/w patient, d/w family ED course: 78-year-old female with a hemorrhagic bullae secondary to trauma. She is on Eliquis. She also has bruising of the left lower extremity, consistent with her trauma. We will have her hold her Eliquis for the next 3 days, we did discuss risks and benefits of this including a small increased risk of stroke. There is no sign of infection. Compartments are soft. No indication for emergent drainage. No fevers. No chills. No redness. We will continue supportive care. Patient and family counseled regarding signs and symptoms for which I believe and urgent re-evaluation would be necessary. Patient with good understanding of and agreement to plan and is comfortable going home at this time This document was made in part using voice recognition software. While efforts are made to proofread this document, sound alike and grammatical errors may occur. Departure - Departure Disposition: 01 Home, Self Care Clinical Impression: Traumatic hematoma Condition: Good Instructions: ED Hematoma Follow-Up: Matilde Rubin PA-C [Primary Care Provider] - Within 1 week Comments: Please follow-up with your doctor for further care. Please return if you worsen. As we discussed I would hold your Eliquis for the next 3 days, this will help to stop any further bleeding and only carries a minimal stroke risk. Please return for fevers, increasing pain or other new or worrisome symptoms. Forms: PCP List Discharge Date/Time: 06/15/24 17:03
== END 2024-06-15 17:03 | disposition home or self-care (01) ==
LOC: ED 16:25
DX: S80.12XA Contusion of left lower leg, initial encounter (principal); I48.91 Unspecified atrial fibrillation; I10 Essential (primary) hypertension; G47.33 Obstructive sleep apnea (adult) (pediatric); Z79.01 Long term (current) use of anticoagulants; X58.XXXA Exposure to other specified factors, initial encounter
CPT/HCPCS: 99281; 99283

== ENCOUNTER 2024-06-17 11:11 | Emergency (ER) | payer MEDICARE, OTHER ==
--- NOTE | 2024-06-17 12:13 | ED Physician Documentation ---
History of Present Illness - Stated complaint Stated Complaint: RT KNEE BRUISE - Chief complaint Chief Complaint: Trauma Ext - History obtained from History obtained from: Patient, Family - Additonal information Additional information: 78-year-old woman who has A-fib and was on DOAC had a leg injury and developed a large hematoma. This is her third visit for same and at the prior 2 visits incision and drainage was not recommended. Now it is starting to drain on its own and she would like to reconsider that. She did stop her DOAC a couple of days ago. Here with . 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 : Chronic bladder infection HEENT: Chronic vision loss, Chronic sinusitis Psych: Claustrophobia Musculoskeletal: Osteoarthritis Derm: Other - Past Surgical History Past Surgical History: No General: Cholecystectomy, Appendectomy, Colonoscopy HEENT: Cataracts, Other - Present Medications Home Medications: Ambulatory Orders Medication Instructions Recorded Confirmed Levothyroxine [Synthroid] 100 mcg PO DAILY 10/10/15 06/17/24 Apixaban [Eliquis] 5 mg PO BID 02/05/21 06/17/24 Simvastatin [Zocor] 20 mg PO DAILY 02/05/21 06/17/24 Flecainide [Tambocar] 100 mg PO BID 03/28/24 06/17/24 carvediloL [Coreg] 12.5 mg PO BID 03/28/24 06/17/24 HYDROcod/ACETAM 5/325 [[place]reeter 5/325] 1 - 2 tab PO Q6H PRN #15 tablet 06/17/24 cephALEXin [Keflex] 500 mg PO Q6H #28 cap 06/17/24 - Allergies Allergies/Adverse Reactions: Allergies Allergy/AdvReac Type Severity Reaction Status Date / Time Sulfa (Sulfonamide Allergy Unknown Verified 06/17/24 11:20 Antibiotics) - Social History Does the pt smoke?: No Smoking Status: Never smoker Does the pt drink ETOH?: Yes ETOH Use: Liquor Does the pt have substance abuse?: No - Immunizations Immunizations are current?: Yes - POLST Patient has POLST: No PD ED PE NORMAL - Vitals Vital signs reviewed: Yes - General General: Alert and oriented X 3, No acute distress - Extremities Extremities: Other (Very large superficial hematoma to the left medial lower leg that is fluctuant. Measures approximately 15 x 10 cm.) - Neuro Neuro: Alert and oriented X 3 Results - Vitals Vitals: Vital Signs - 24 hr 06/17/24 11:22 Temperature 36.9 C Heart Rate 62 Respiratory 18 Rate Blood Pressure 126/52 L O2 Saturation 99 Oxygen O2 Source Room air PD Medical Decision Making - ED course ED course: She has a very large hematoma that has now spontaneously opened but not significantly draining on the right leg. We had a long discussion about the pros and cons of incision and drainage including the increased risk of infection and potentially bleeding with incision and drainage but she is miserable and like would like to go ahead with it. Procedure note: Incision and drainage of left leg hematoma: Verbal consent was obtained and risk benefits and alternatives were discussed including stressing the risk of increased bleeding and infection as well as likely needing referral to wound care. It was prepped widely with ChloraPrep and then an incision was made. The skin was already anesthetic so she did not need any anesthetic, and there was significant clot in the hematoma. The incision had to be extended significantly to start to evacuate the clot and then most the clot was manually removed. Subsequently I irrigated the wound with copious normal saline and dressed it with gauze and wraps. They were counseled on wound care. Also counseled that they would likely need to follow-up with the wound care clinic and I will write a email to DENZEL Rubin to expedite. Departure - Departure Disposition: 01 Home, Self Care Clinical Impression: Traumatic hematoma Condition: Good Record reviewed to determine appropriate education?: Yes Instructions: ED Hematoma Follow-Up: Matilde Rubin PA-C [Primary Care Provider] - Prescriptions: cephALEXin [Keflex] 500 mg PO Q6H #28 cap HYDROcod/ACETAM 5/325 [Streeter 5/325] 1 - 2 tab PO Q6H PRN #15 tablet PRN Reason: Pain Comments: I sent your prescriptions electronically to the [facility] in [place]. You are seen today for a very large hematoma of the left leg which was incised per your request and clot removed is much as possible. I would remain off your blood thinner until advised otherwise, and I will email DENZEL Rubin with the advice that she probably need to go to the wound care clinic and will need a referral. Until you are established with them you can dress it with dry gauze and then wraps. Return if you worsen. I am prescribing a short course of narcotic pain medication for you. These are potentially dangerous and addictive medications that should be used carefully. These medications may constipate you. Take an [id number] stool softener (docusate) twice daily with plenty of water while taking these medications. If you go 24 hours without a bowel movement, take [id number] miralax, per package instructions. Do not drink or drive while taking these medications. If you received narcotic or sedating medications while in the emergency department, do not drive for 24 hours. Store this medication in a safe, secure place and out of reach of children. It is a violation of federal law to give or sell this medication to another person or to use in a manner other than prescribed. The ED will not refill narcotic prescriptions, including prescriptions lost or stolen. To dispose of unwanted medications: 1. [facility] provides a drop box for medication in pill form only (no liquids) 8:00 am to 4:30 p.m. Wednesday-Wednesday in the lobby of the [facility], [address] Empty pills into ziplock bag before disposal. Call [phone] for information. 2.[employer] is a free service available to all [facility] residents. Go to [email or web address] Note that many narcotic pain relievers also contain Tylenol/acetaminophen. Please ensure that your total dose of acetaminophen from all sources does not exceed 3 g (3000 mg) per day. Forms: PCP List
[2024-06-17] MEDS: HYDROcod/ACETAM 5/325 MG TABLET PO STA (13:13)
[2024-06-17] MEDS: cephALEXin 250 MG CAPSULE PO STA (13:14)
[2024-06-17 13:26] VITALS: O2SAT 100
[2024-06-17 13:40] VITALS: BP 142/82
== END 2024-06-17 13:28 | disposition home or self-care (01) ==
LOC: ED 11:11
DX: S80.02XA Contusion of left knee, initial encounter (principal); X58.XXXA Exposure to other specified factors, initial encounter; I48.91 Unspecified atrial fibrillation; Z79.01 Long term (current) use of anticoagulants
CPT/HCPCS: 10140; 99283; A9270